=== PATIENT | female | born 1955 | race Caucasian/White ===

== ENCOUNTER 2016-12-02 12:31 | Inpatient (IN) | payer OTHER ==
[2016-12-02] VITALS (12 sets, daily range): BP systolic 121–182; BP diastolic 78–108; PULSE 80–91; RESP 16–30; TEMP 97.8; Ht 157.5 cm; Wt 112.0 kg
[~2016-12-02] VITALS: Ht 157.5 cm; Wt 112.0 kg
[2016-12-02] MEDS ORDERED: SOD CHLORIDE 0.9% 500 ML IV STA (12:35)
[2016-12-02] MEDS ORDERED: LORAZEPAM 2 MG INJ IV STA (12:35)
--- NOTE | 2016-12-02 14:00 | RADRPT ---
Addendum created at 12/02/2016 3:35:14 PM: These findings were discussed with [<Randolph Sarkar >] on 12/02/2016 at 3:32 PM who was aware of the finding. Addendum by: Melvin Doss PROCEDURE: Noncontrast CT Head. CLINICAL INDICATION: Seizure. TECHNIQUE: Noncontrast CT of the head was obtained. The administered radiation dose was CTDI vol = 43.38 mGy, DLP = 720.23 mGy-cm. One or more of the following dose reduction techniques were used: Au tomated exposure control, Adjustment of the mA and/or kV according to patient size, or Use of iterat yris reconstruction technique. COMPARISON: There are no similar studies submitted for comparison. FINDINGS: There is minimal generalized cerebral volume loss. There is minimal periventricular hypoattenuation suggesting chronic microvascular ischemic changes. There are mild vascular calcifications within the intracranial carotid arteries. There is no loss of carballo-white differentiation to suggest acute territorial infarction. There is an acute 3 mm in thickness posterior falcine subdural hemorrhage (image 22 series 2). There is no mass effect. No midline shift is identified. The patient is status post bilateral lens surgery. The paranasal sinuses are well aerated. No destructive osseous lesion is identified. IMPRESSION: 1. Acute 3 mm posterior falcine subdural hemorrhage. 2. Minimal generalized cerebral volume loss. 3. Minimal chronic microvascular ischemic changes. Consider MRI of the brain with and without contrast which is a more sensitive examination for evalua tion of seizures as clinically warranted. Further findings as detailed above. RPTAT: PP .Melvin Doss MD, Date Time Electronically viewed and signed by .Melvin Doss MD, MD on 12/02/2016 15:35 .F/
[2016-12-02 14:17] LABS: BASOPHIL # 0.1 10^3/ul (0.0-0.1); BASOPHILS % 0.7 % (0.0-2.0); EOSINOPHILS % 0.4 % (0.0-7.0); HEMATOCRIT 43.7 % (37.0-47.0); HEMOGLOBIN 14.2 g/dl (12.0-16.0); LYMPHOCYTES % 9.2 % (15.0-51.0); MEAN CORPUSCULAR HEMOGLOBIN 28.6 pg (29.0-33.0); MEAN CORPUSCULAR HGB CONC 32.5 g/dl (32.0-37.0); MEAN CORPUSCULAR VOLUME 88.1 fl (82.0-101.0); MEAN PLATELET VOLUME 11.7 fl (7.4-10.4); MONOCYTE # 0.5 10^3/ul (0.3-0.9); MONOCYTES % 4.5 % (0.0-11.0); NEUTROPHILS % 83.9 % (39.0-77.0); PLATELET COUNT 174 10^3/UL (140-415); RED BLOOD COUNT 4.96 10^6/ul (4.20-5.40); RED CELL DISTRIBUTION WIDTH 15.1 % (11.5-14.5); WHITE BLOOD COUNT 11.2 10^3/ul (4.8-10.8)
[2016-12-02 14:38] LABS: CALCIUM 8.9 mg/dl (8.4-10.2); CREATININE 0.74 mg/dl (0.44-1.00); POTASSIUM 4.1 mmol/L (3.5-5.1)
[2016-12-02] MEDS ORDERED: CLOP75TA27 PO (14:38)
[2016-12-02] MEDS ORDERED: ATOR20TA38 PO (14:38)
[2016-12-02] MEDS ORDERED: FURO20TA3 PO (14:38)
[2016-12-02] MEDS ORDERED: LAMO100T PO (14:39)
[2016-12-02] MEDS ORDERED: OMEP20CA16 PO (14:40)
--- NOTE | 2016-12-02 15:21 | ERA ---
ER Documentation Chief Complaint Date/Time DATE: 12/02/16 TIME: 15:15 Chief Complaint BROUGHT IN VIA EMS DUE TO SEIZURE FROM SNF HPI This is a 61-year-old female who presents the emergency room with a seizure. The patient presents from group home facility with a seizure. She has a known seizure and takes lamotrigine. The patient has reported compliance with medication regimen.The patient's last breakthrough seizure was in March, this history is provided by the patient's sister who has arrived later. The patient had a postictal state upon arrival. Accu-Chek in the field was normal. There is no report of fall or trauma.The patient was postictal upon arrival and unable to provide significant history. However throughout her ER course she had returned to baseline and was talking to the nurse asking for cigarette. ROS All systems reviewed and are negative except as per history of present illness. Medications Home Meds Reported Medications Omeprazole* (Omeprazole*) 20 Mg Capsule.dr, 20 MG PO DAILY, #30 CAP 12/02/16 Lamotrigine* (Lamotrigine*) 100 Mg Tablet, 100 MG PO BID, TAB 12/02/16 Furosemide* (Furosemide*) 20 Mg Tablet, 20 MG PO DAILY, #60 TAB 12/02/16 Clopidogrel Bisulfate (Clopidogrel) 75 Mg Tablet, 75 MG PO DAILY, #30 TAB 12/02/16 Atorvastatin Calcium* (Atorvastatin Calcium*) 20 Mg Tablet, 20 MG PO QHS, #30 TAB 12/02/16 Allergies Allergies: Coded Allergies: aspirin (Verified Allergy, Severe, 12/02/16) atenolol (Verified Allergy, Severe, 12/02/16) chlorthalidone (Verified Allergy, Severe, 12/02/16) lisinopril (Verified Allergy, Severe, 12/02/16) losartan (Verified Allergy, Severe, 12/02/16) PMhx/Soc Medical and Surgical Hx: Unable to obtain Hx Miscellaneous Medical Probl: Yes (SEIZURE) Hx Alcohol Use: Yes Hx Substance Use: No Hx Tobacco Use: Yes Smoking Status: Current every day smoker FmHx Family History: No diabetes Physical Exam Vitals Vital Signs Date Time Temp Pulse Resp B/P Pulse Ox O2 Delivery O2 Flow Rate FiO2 12/02/16 12:36 98.0 119 20 132/81 98 Physical Exam General: Protecting her airway, slightly postictal, following very simple commands Head: Normocephalic, atraumatic. Eyes: Pupils equally reactive, EOM intact ENT: Moist mucous membranes Neck: Supple, no lymphadenopathy Respiratory: Lungs clear bilaterally, no distress Cardiovascular: RRR, no murmurs, rubs, or gallops Abdominal: Soft, non-tender, non-distended, no peritoneal signs : Deferred MSK: No edema, no unilateral swelling, 5/5 strength Neurologic: Alert and oriented After appear to time of resolved postictal state , moving all extremities, normal speech, no focal weakness, no cerebellar signs Skin: No rash, No evidence of trauma to the occipital head or scalp Psych: Normal mood Result Diagram: 12/02/16 1405 12/02/16 1405 Results 24 hrs Laboratory Tests Test 12/02/16 14:05 White Blood Count 11.210^3/ul Red Blood Count 4.9610^6/ul Hemoglobin 14.2g/dl Hematocrit 43.7% Mean Corpuscular Volume 88.1fl Mean Corpuscular Hemoglobin 28.6pg Mean Corpuscular Hemoglobin Concent 32.5g/dl Red Cell Distribution Width 15.1% Platelet Count 48616^3/UL Mean Platelet Volume 11.7fl Neutrophils % 83.9% Lymphocytes % 9.2% Monocytes % 4.5% Eosinophils % 0.4% Basophils % 0.7% Nucleated Red Blood Cells % 0.0/100WBC Neutrophils # (Manual) 9.410^3/ul Lymphocytes # 1.010^3/ul Monocytes # 0.510^3/ul Eosinophils # 0.010^3/ul Basophils # 0.110^3/ul Nucleated Red Blood Cells # 0.010^3/ul Sodium Level 139mmol/L Potassium Level 4.1mmol/L Chloride Level 100mmol/L Carbon Dioxide Level 24mmol/L Anion Gap 19 Blood Urea Nitrogen 13mg/dl Creatinine 0.74mg/dl Glucose Level 104mg/dl Calcium Level 8.9mg/dl Current Medications Medications (Trade) Dose Ordered Sig/Alysha Route PRN Reason Start Time Stop Time Status Last Admin Dose Admin Sodium Chloride (NS) 500 ml @ 500 mls/hr Q1H STAT IV 12/02/16 12:35 12/02/16 13:34 DC 12/02/16 13:19 Lorazepam 0.5 mg 0.5 mg ONCE STAT IV 12/02/16 12:35 12/02/16 12:37 DC 12/02/16 13:18 Desmopressin Acetate 20 mcg/ Sodium Chloride 55 ml @ 110 mls/hr ONCE ONCE IVPB 12/02/16 16:00 12/02/16 16:29 UNV Sodium Chloride (NS) 250 ml @ 0 mls/hr Q0M ONCE IV 12/02/16 15:38 12/02/16 15:39 UNV Procedures/MDM EKG, MONITORS, & DIAGNOSTIC IMAGING: EKG: I reviewed and interpreted a 12-lead EKG. Rhythm: Normal sinus rhythm Ectopy: None Intervals: No abnormalities ST segments: No elevations or depressions T waves: No contiguous inversions CT brain: IMPRESSION: 1. Acute 3 mm posterior falcine subdural hemorrhage. 2. Minimal generalized cerebral volume loss. 3. Minimal chronic microvascular ischemic changes. Consider MRI of the brain with and without contrast which is a more sensitive examination for evaluation of seizures as clinically warranted. Further findings as detailed above. RPTAT: PP LAB INTERPRETATION: Normal electrolytes, coagulation profile pending MEDICAL DECISION MAKING: The patient presents with a seizure. She has a history of seizure and takes lamotrigine. The patient was postictal upon arrival prompting laboratory testing and CT imaging. Intervally, the patient has returned to her baseline and was asking the nurse for cigarettes. She did receive 0.5 mg of Ativan for seizure prophylaxis. The patient is sleeping and resting comfortably. However , the patient CT brain shows evidence of a small acute subdural hemorrhage. A phone call was not made by radiologist therefore there is a delay in consultation with the neurosurgeon. The patient is protecting her airway but still sleeping. Family member was informed. Coagulation profile added. The patient does take Plavix, I will discuss platelet transfusion with the neurosurgeon. ER COURSE: The patient continues to protect her airway. Given intracranial hemorrhage, ICU observation would be appropriate. No evidence of need for Further seizure prophylaxis at this time. Continue to monitor. Neurosurgery requested DDAVP and platelet transfusion given Plavix. The patient was now more awake and arousable. I discussed with the patient and/or family the risks, benefits, alternatives of blood transfusion. This includes allergic reaction and infections including HIV and hepatitis. The patient and/or family were able to verbalize these risks , stated understanding. A document has been signed and placed in the chart. I kept the patient and/or family informed of laboratory and diagnostic imaging results throughout the emergency room course. DISPOSITION PLAN: Intensive care unit CONSULTATION: Accepting care team and consultations: I discussed the current laboratory data, diagnostic imaging and emergency care provided. Admitting team: Dr SILVEIRA Admitting team indication: Insurance directed, [place] Consulting services: Dr. Ty, neurosurgery Critical Care Note: Total time: 43 minutes Indication/Organ System Threat: Intracranial hemorrhage I spent the above amount of critical care time with the patient, not including billable procedures. This included chart review, consultations, repeat bedside evaluations, and titration of appropriate medications to prevent cardiopulmonary or respiratory collapse. Departure Diagnosis: Primary Impression: Nontraumatic acute subdural hemorrhage Additional Impression: Seizure disorder Condition: MARLENE Dang MD Dec 02, 2016 15:21
[2016-12-02] MEDS ORDERED: SOD CHLORIDE 0.9% 250 ML IV ONE (15:38)
[2016-12-02] MEDS ORDERED: DESMOPRESSIN 20 MCG in SOD CHLORIDE 0.9% 50 ML IVPB ONE (16:00)
[2016-12-02] MEDS ORDERED: SOD CHLORIDE 0.9% 1,000 ML IV SCH (17:38)
[2016-12-02] MEDS ORDERED: ACETAMINOPHEN 325 MG TAB PO PRN ×2 (18:00)
[2016-12-02] MEDS ORDERED: BISACODYL 10 MG SUPP PR PRN (18:00)
[2016-12-02] MEDS ORDERED: DOCUSATE SODIUM 100 MG CAP PO PRN (18:00)
[2016-12-02] MEDS ORDERED: LORAZEPAM 2 MG INJ IV PRN (18:00)
[2016-12-02] MEDS ORDERED: morphine 2 MG INJ IV PRN (18:00)
[2016-12-02] MEDS ORDERED: ACETAMINOPHEN 650 MG SUPP PR PRN (18:00)
[2016-12-02] MEDS ORDERED: ONDANSETRON 4 MG INJ IV PRN (18:00)
[2016-12-02] MEDS ORDERED: MAGNESIUM HYDROXIDE 30ML CUP PO PRN (18:00)
[2016-12-02 18:48] LABS: INR 1.03; PROTIME 13.5 Sec (12.2-14.2); PT RATIO 1.1
--- NOTE | 2016-12-02 19:04 | RADRPT ---
PROCEDURE: CT Head without contrast. CLINICAL INDICATION: Subdural hematoma follow-up. Seizure. TECHNIQUE: The study was performed utilizing a GE 64-slice multidetector CT scanner. Direct spiral axial CT images of the brain were obtained from the vertex to the skull base without contrast. Gumaro nal and sagittal reformatted images are provided. The CTDI vol is 43.38 mGy and the DLP is 810.25 mG y-cm. The images were reviewed on a PACS workstation. COMPARISON: 12/02/2016 from 01:49 p.m. FINDINGS: Minimal diffuse atrophy is seen with a compensatory ventricular enlargement. Minimal white matter d isease in the periventricular and deep white matter is seen. Again seen is a tiny acute subdural hem atoma in the posterior falx measuring 3 mm in size and has not changed significantly. The carballo-whit e matter differentiation is maintained. No intra-axial fluid collection or mass effect or shift in the midline structures is seen. The visualized paranasal sinuses, mastoid air cells, orbits, and ca lvarium are unremarkable. Vascular calcifications are seen. IMPRESSION: 1. Stable tiny acute posterior falx subdural hematoma. 2. Minimal diffuse volume loss and minimal chronic microvascular ischemic changes again noted. RPTAT: HPNM Physician Chito Date Time Electronically viewed and signed by Physician Chito on 12/02/2016 19:04 /
[2016-12-02] MEDS ORDERED: NICOTINE (21 MG/24 HR) PATCH TRANSDERM ONE (20:00)
[2016-12-02] MEDS: NICOTINE (21 MG/24 HR) PATCH TRANSDERM SCH (20:30)
--- NOTE | 2016-12-02 20:37 | HP ---
Date/Time of Note Date/Time of Note DATE: 12/02/16 TIME: 20:20 Assessment/Plan VTE Prophylaxis VTE Prophylaxis Intervention: SCD's Assessment/Plan Assessment/Plan 61 yo female with: 1. Acute 3 mm posterior falcine subdural hemorrhage: Repeat CAT scan this evening with stable small posterior falx subdural hematoma Appreciate recommendations from neurosurgery, patient was given DDAVP, Plavix discontinued, platelet transfusion ordered. Repeat CAT scan stable. Admitting to intensive care unit for close monitoring. Neurosurgery evaluation pending. Blood pressure control CT angiogram head and neck ordered, MRI brain pending. 2. Seizure disorder: Continue Lamictal, if additional seizure medication needed , will have EEG and neurology consult and possibly start Keppra. Ativan as needed for seizures. 3. Hypertension: Continue home medications, hydralazine as needed, nicardipine drip as needed 4. Hyperlipidemia: Fasting lipid panel in a.m., continue statin therapy. 5. Congestive heart failure: Monitor volume status, holding of Lasix. 2D echocardiogram to evaluate ejection fraction. 6. Tobacco use: Patient refusing to quit, nicotine patch while inpatient. Prophylaxis: SCDs for DVT prophylaxis, Pepcid for GI prophylaxis Disposition: Admit to ICU for close neurological monitoring, neurosurgery evaluation, additional brain imaging in a.m., additional neurological evaluation if needed for seizure disorder if uncontrolled. 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 By the time the patient got to the emergency department she was postictal and had recovered. As part of her workup she had a CAT scan of the brain that showed small area of subdural hemorrhage. Patient was given DDAVP and platelets since she is on Plavix, repeat CAT scan 6 hours later shows stable small subdural hematoma. She is already on Lamictal, Ativan has been ordered as needed for seizures. She will be evaluated by Dr. Ty from Neurosurgery. She is alert oriented 3 at least currently, per family member at baseline the patient's mental status is close to baseline. She is still current smoker and is insisting on going in smoking unaware of the fact that she is currently on seizure precaution. According to family member, at baseline patient is noted to have a lot of impulsivity and also occasionally forgetful. She likely has signs of dementia possibly vascular dementia. She seems impulsive. She is being admitted to intensive care unit for close neurological monitoring. Additional brain imaging to be obtained in a.m. ROS Constitutional: improved Eyes: no complaints ENT: no complaints Respiratory: no complaints Cardiovascular: no complaints Gastrointestinal: no complaints Genitourinary: no complaints Musculoskeletal: no complaints Skin: no complaints Neurologic: seizure Endocrine: no complaints Psychological: other (Impulsive, likely early dementia) PMH/Family/Social Past Medical History Previous CVA 2, March 2015 and March 2016 in [place], according to the family member likely ischemic CVA asked the patient was placed on Plavix Hypertension Hyperlipidemia Seizure disorder Congestive heart failure per family member, Medical History: high cholesterol, hypertension Past Surgical History Past Surgical Hx: no surgical history Family History Significant Family History: no pertinent family hx Social History Alcohol Use: none Smoking Status: Current every day smoker (Up to 1 pack a day) Drug Use: none Exam/Review of Systems Vital Signs Vitals Vital Signs Date Time Temp Pulse Resp B/P Pulse Ox O2 Delivery O2 Flow Rate FiO2 12/02/16 19:16 97.8 84 20 129/75 98 Room Air Exam Constitutional: alert, oriented (x3), other (Little agitated as she wants to go out and smoke) Psych: anxiety, confusion Respiratory: clear to auscultation, normal air movement Cardiovascular: nl pulses, regular rate and rhythm Gastrointestinal: non-tender, soft Extremities: normal pulses, other (No edema, clubbing or cyanosis) Neurological: SATELLITE D[employer] 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 II-XII intact, lethargic (slightly), nl speech, other (Very impulsive) Labs Result Diagram: 12/02/16 1405 12/02/16 1405 Medications Medications Current Medications Sodium Chloride (NS) 1,000 ml @ 80 mls/hr [id number] IV ; Start 12/02/16 at 17:38 Ondansetron HCl (Zofran Inj) 4 mg Q6H PRN IV NAUSEA AND/OR VOMITING; Start at 18:00 Acetaminophen (Tylenol Tab) 650 mg Q6H PRN PO PAIN; Start 12/02/16 at 18:00 Acetaminophen (Tylenol Supp) 650 mg Q4H PRN WA PAIN LEVEL 1-3 OR FEVER; Start 12/02/16 at 18:00 Morphine Sulfate (morphine) 2 mg Q4H PRN IV PAIN LEVEL 7-10; Start 12/02/16 at 18:00 Docusate Sodium (Colace) 100 mg Q12H PRN PO CONSTIPATION; Start 12/02/16 at 18: 00 Magnesium Hydroxide (Milk Of Mag) 30 ml DAILY PRN PO CONSTIPATION; Start at 18:00 Bisacodyl (Dulcolax Supp) 10 mg DAILY PRN [place] CONSTIPATION; Start 12/02/16 at 18 :00 Famotidine (Pepcid) 20 mg Q12 PO ; Start 12/02/16 at 21:00 Eye Lubricant (Artificial Tears Oph) 1 drop TID BOTH EYES ; Start 12/02/16 at 21 :00 Acetaminophen (Tylenol Tab) 650 mg Q4H PRN PO TEMP GREATER THAN 99.6F; Start at 18:00 Docusate Sodium (Colace) 100 mg BID PO ; Start 12/02/16 at 21:00 Atorvastatin Calcium (Lipitor) 20 mg QHS PO ; Start 12/02/16 at 21:00 Lamotrigine (Lamictal) 100 mg BID PO ; Start 12/02/16 at 21:00 Pantoprazole (Protonix Tab) 40 mg DAILY@06 PO ; Start 12/03/16 at 06:00 Lorazepam (Ativan) 1 mg Q6H PRN IV SEIZURES Last administered on 12/02/16t 20: 04; Admin Dose 1 MG; Start 12/02/16 at 18:00 Procedures Procedures Addendum created at 12/02/2016 3:35:14 PM: These findings were discussed with [<Randolph Sarkar >] on 12/02/2016 at 3:32 PM who was aware of the finding. Addendum by: Melvin Doss PROCEDURE: Noncontrast CT Head. CLINICAL INDICATION: Seizure. TECHNIQUE: Noncontrast CT of the head was obtained. The administered radiation dose was CTDI vol = 43.38 mGy, DLP = 720.23 mGy-cm. One or more of the following dose reduction techniques were used: Automated exposure control, Adjustment of the mA and/or kV according to patient size, or Use of iterative reconstruction technique. COMPARISON: There are no similar studies submitted for comparison. FINDINGS: There is minimal generalized cerebral volume loss. There is minimal periventricular hypoattenuation suggesting chronic microvascular ischemic changes. There are mild vascular calcifications within the intracranial carotid arteries. There is no loss of carballo-white differentiation to suggest acute territorial infarction. There is an acute 3 mm in thickness posterior falcine subdural hemorrhage ( image 22 series 2). There is no mass effect. No midline shift is identified. The patient is status post bilateral lens surgery. The paranasal sinuses are well aerated. No destructive osseous lesion is identified. IMPRESSION: 1. Acute 3 mm posterior falcine subdural hemorrhage. 2. Minimal generalized cerebral volume loss. 3. Minimal chronic microvascular ischemic changes. Consider MRI of the brain with and without contrast which is a more sensitive examination for evaluation of seizures as clinically warranted. Further findings as detailed above. RPTAT: PP .Melvin Doss MD, MD Date Time Electronically viewed and signed by .Melvin Doss MD, MD on 12/02/2016 15:35 PROCEDURE: CT Head without contrast. CLINICAL INDICATION: Subdural hematoma follow-up. Seizure. TECHNIQUE: The study was performed utilizing a GE 64-slice multidetector CT scanner. Direct spiral axial CT images of the brain were obtained from the vertex to the skull base without contrast. Coronal and sagittal reformatted images are provided. The CTDI vol is 43.38 mGy and the DLP is 810.25 mGy-cm. The images were reviewed on a PACS workstation. COMPARISON: 12/02/2016 from 01:49 p.m. FINDINGS: Minimal diffuse atrophy is seen with a compensatory ventricular enlargement. Minimal white matter disease in the periventricular and deep white matter is seen. Again seen is a tiny acute subdural hematoma in the posterior falx measuring 3 mm in size and has not changed significantly. The carballo-white matter differentiation is maintained. No intra-axial fluid collection or mass effect or shift in the midline structures is seen. The visualized paranasal sinuses, mastoid air cells, orbits, and calvarium are unremarkable. Vascular calcifications are seen. IMPRESSION: 1. Stable tiny acute posterior falx subdural hematoma. 2. Minimal diffuse volume loss and minimal chronic microvascular ischemic changes again noted. RPTAT: HPNM Physician Chito Date Time Electronically viewed and signed by Yoshi Bolaños Physician on 12/02/2016 19 :04 / DOMINICK SILVEIRA Dec 02, 2016 20:31
[2016-12-02] MEDS: DOCUSATE SODIUM 100 MG CAP PO SCH (21:00)
[2016-12-02] MEDS: ATORVASTATIN 20 MG TAB PO SCH (21:00)
[2016-12-02] MEDS: LAMOTRIGINE 100 MG TAB PO SCH (21:00)
[2016-12-02] MEDS: FAMOTIDINE 20 MG TAB PO SCH (21:00)
[2016-12-02] MEDS: niCARdipine 25 MG in SOD CHLORIDE 0.9% 240 ML IV SCH (21:40)
[2016-12-02] MEDS: ARTIFICIAL TEARS 15 ML OPH BOTH EYES SCH (22:09)
[2016-12-02] MEDS: LORAZEPAM 2 MG INJ IV PRN (22:46)
[2016-12-02] MEDS: DEXTROSE 5%-0.45% NACL 1,000 ML IV SCH (23:00)
[2016-12-03] VITALS (47 sets, daily range): BP systolic 95–160; BP diastolic 26–118; PULSE 75–91; RESP 16–27
[2016-12-03] MEDS ORDERED: SOD CHLORIDE 0.9% 100 ML ONE (01:16)
[2016-12-03] MEDS ORDERED: IOHEXOL 300MG/ML 150 ML BTL ONE (01:16)
[2016-12-03] MEDS: niCARdipine 25 MG in SOD CHLORIDE 0.9% 240 ML IV SCH (01:55)
[2016-12-03] MEDS: LORAZEPAM 2 MG INJ IV PRN (02:03)
--- NOTE | 2016-12-03 02:54 | RADRPT ---
PROCEDURE: CTA Head and neck. CLINICAL INDICATION: Intracranial hemorrhage TECHNIQUE: CTA of the head and neck was obtained . Sagittal and coronal reformations and MIPs were provided. The administered radiation dose was CTDI vol = 17.1 mGy, DLP = 644 mGy-cm. Images were ob tained prior following the intravenous contrast administration of 100 cc of Omnipaque 300 contrast. Coronal and sagittal as well as maximal intensity projection reformations were obtained. COMPARISON: 12/02/2016 FINDINGS: CTA head: Carotid arteries: Some mild atherosclerotic calcifications are noted within the cavernous and suprac linoid carotid arteries without significant narrowing. Anterior cerebral arteries: Unremarkable. Middle cerebral arteries: Unremarkable. Posterior cerebral arteries: Unremarkable. Anterior communicating artery: Present. Posterior communicating arteries: Patent on the left. Not definitely seen on the right. Basilar artery: Unremarkable. No aneurysm is identified.The venous sinuses are patent. CTA neck: Aorta:Within normal limits. Right carotid artery Common carotid artery: Unremarkable. Internal carotid artery: Some atherosclerotic calcifications are noted in the carotid bulb. No sign ificant stenosis by NASCET criteria. External carotid artery: Unremarkable. Left carotid artery Common carotid artery: There is some noncalcified plaque within the left distal common carotid arter y with approximately 30% narrowing by NASCET criteria. Internal carotid artery: Some atherosclerotic calcifications are noted in the carotid bulb. No sign ificant stenosis by NASCET criteria. External carotid artery: Unremarkable. Vertebral arteries: Unremarkable. Vertebral artery dominance: Right CT neck with contrast: Small nodules are noted within the right thyroid lobe. There is no cervical adenopathy. IMPRESSION: No internal carotid artery stenosis by NASCET criteria. Mild narrowing of the left common carotid artery. No intracranial aneurysm or stenosis. RPTAT: HJAH .Francisco Javier Desir MD, Date Time Electronically viewed and signed by .Francisco Javier Desir MD, on 12/03/2016 02:53 .T/
[2016-12-03] MEDS: PANTOPRAZOLE (EC) 40 MG TAB PO SCH (06:00)
[2016-12-03 07:17] LABS: BASOPHIL # 0.1 10^3/ul (0.0-0.1); BASOPHILS % 0.7 % (0.0-2.0); EOSINOPHILS # 0.4 10^3/ul (0.0-0.5); EOSINOPHILS % 3.5 % (0.0-7.0); HEMATOCRIT 40.4 % (37.0-47.0); HEMOGLOBIN 13.2 g/dl (12.0-16.0); LYMPHOCYTES # 2.4 10^3/ul (0.8-2.9); MEAN CORPUSCULAR HEMOGLOBIN 28.6 pg (29.0-33.0); MEAN CORPUSCULAR HGB CONC 32.7 g/dl (32.0-37.0); MEAN CORPUSCULAR VOLUME 87.4 fl (82.0-101.0); MEAN PLATELET VOLUME 11.6 fl (7.4-10.4); MONOCYTE # 0.9 10^3/ul (0.3-0.9); MONOCYTES % 7.8 % (0.0-11.0); NEUTROPHILS % 65.3 % (39.0-77.0); PLATELET COUNT 178 10^3/UL (140-415); RED BLOOD COUNT 4.62 10^6/ul (4.20-5.40); RED CELL DISTRIBUTION WIDTH 15.5 % (11.5-14.5)
[2016-12-03 07:29] LABS: INR 0.97; PARTIAL THROMBOPLASTIN TIME 22.8 Sec (25.0-35.0); PROTIME 12.9 Sec (12.2-14.2)
[2016-12-03 07:31] LABS: MAGNESIUM 2.2 mg/dl (1.7-2.5); PHOSPHORUS 2.9 mg/dl (2.5-4.9)
[2016-12-03 07:32] LABS: ALBUMIN/GLOBULIN RATIO 1.14; BILIRUBIN,INDIRECT 0.8 mg/dl (0-1.1); BILIRUBIN,TOTAL 0.8 mg/dl (0.2-1.3); CALCIUM 8.7 mg/dl (8.4-10.2); CREATININE 0.57 mg/dl (0.44-1.00); POTASSIUM 3.2 mmol/L (3.5-5.1); TOTAL PROTEIN 7.5 g/dl (6.1-8.1)
[2016-12-03 07:51] LABS: CHOL/HDL RATIO 2.5 RATIO
[2016-12-03] MEDS: DOCUSATE SODIUM 100 MG CAP PO SCH ×2 (09:00→20:06)
[2016-12-03] MEDS ORDERED: POTASSIUM CHLORIDE (SR) 20 MEQ TAB PO STA (09:36)
--- NOTE | 2016-12-03 09:49 | PN ---
Date/Time of Note Date/Time of Note DATE: 12/03/16 TIME: 09:43 Assessment/Plan VTE Prophylaxis VTE Prophylaxis Intervention: SCD's Lines/Catheters IV Catheter Type (from Nrs): Peripheral IV Urinary Cath still in place: Yes Reason Cath still needed: other (indicate) (Monitor urine output, bed bound for now) Assessment/Plan Assessment/Plan 61 yo female with: 1. Acute 3 mm posterior falcine subdural hemorrhage: Repeat CAT scan last night with stable small posterior falx subdural hematoma CT angiogram head and neck done overnight, CT angiogram neck negative for stenosis, CT angiogram head results pending. MRI brain pending. Appreciate recommendations from neurosurgery, patient was given DDAVP, Plavix discontinued, platelet transfusion ordered. Repeat CAT scan stable. Follow-up recommendations this morning. Blood pressure control, currently on Cardene drip while n.p.o. awaiting speech evaluation One-to-one sitter 2. Seizure disorder: Continue Lamictal, if additional seizure medication needed , will have EEG and neurology consult and possibly start Keppra. Ativan as needed for seizures. 3. Hypertension: Currently n.p.o., nicardipine drip has been started overnight for blood pressure control. Hydralazine as needed. 4. Hyperlipidemia: Fasting lipid panel in a.m., continue statin therapy. 5. Congestive heart failure: Monitor volume status, holding of Lasix. 2D echocardiogram to evaluate ejection fraction pending. 6. Tobacco use: Patient refusing to quit, nicotine patch while inpatient. Prophylaxis: SCDs for DVT prophylaxis, Pepcid for GI prophylaxis Disposition: ICU for close neurological monitoring while on nicardipine drip, neurosurgery evaluation pending, CTA brain results pending, MRI brain pending. 1 :1 sitter. Subjective 24 Hr Interval Summary Free Text/Dictation Patient still impulsive, disoriented at times, hemodynamically stable, had to be started on nicardipine drip for blood pressure control. She is currently n.p.o. awaiting speech evaluation. Sitter at bedside. Follow-up neurosurgical evaluation and the recommendation. MRI brain still pending, CT angiogram head and neck done results pending. No seizure activity reported. Exam/Review of Systems Vital Signs Vitals Vital Signs Date Time Temp Pulse Resp B/P Pulse Ox O2 Delivery O2 Flow Rate FiO2 12/03/16 06:30 78 27 107/26 97 8/31/17 06:00 Nasal Cannula 2.0 12/03/16 04:00 97.8 Intake and Output 12/02/16 12/02/16 12/03/16 15:00 23:00 07:00 Intake Total 275 ml 680 ml Output Total 275 ml 1125 ml Balance 0 ml -445 ml Exam Constitutional: alert, oriented (x2) Head: normocephalic Respiratory: clear to auscultation, normal air movement Cardiovascular: nl pulses, regular rate and rhythm Gastrointestinal: non-tender, soft Musculoskeletal: nl extremities to inspection Extremities: normal pulses, other (No edema, clubbing or cyanosis) 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, confused (Oriented x2), lethargic, nl speech, other (Moving all 4 extremities) Results Result Diagram: 12/03/1620 12/03/16 0620 Results 24 hrs Laboratory Tests Test 12/02/16 14:05 12/03/16 06:20 White Blood Count 11.2 H 11.0 H Red Blood Count 4.96 4.62 Hemoglobin 14.2 13.2 Hematocrit 43.7 40.4 Mean Corpuscular Volume 88.1 87.4 Mean Corpuscular Hemoglobin 28.6 L 28.6 L Mean Corpuscular Hemoglobin Concent 32.5 32.7 Red Cell Distribution Width 15.1 H 15.5 H Platelet Count 174 178 Mean Platelet Volume 11.7 H 11.6 H Neutrophils % 83.9 H 65.3 Lymphocytes % 9.2 L 22.0 Monocytes % 4.5 7.8 Eosinophils % 0.4 3.5 Basophils % 0.7 0.7 Nucleated Red Blood Cells % 0.0 0.0 Neutrophils # (Manual) 9.4 H 7.2 Lymphocytes # 1.0 2.4 Monocytes # 0.5 0.9 Eosinophils # 0.0 0.4 Basophils # 0.1 0.1 Nucleated Red Blood Cells # 0.0 0.0 Prothrombin Time 13.5 12.9 Prothrombin Time Ratio 1.1 1.0 INR International Normalized Ratio 1.03 0.97 Activated Partial Thromboplast Time 30.0 22.8 L Sodium Level 139 140 Potassium Level 4.1 3.2 L Chloride Level 100 100 Carbon Dioxide Level 24 28 Anion Gap 19 H 15 Blood Urea Nitrogen 13 10 Creatinine 0.74 0.57 Glucose Level 104 94 Calcium Level 8.9 8.7 Phosphorus Level 2.9 Magnesium Level 2.2 Total Bilirubin 0.8 Direct Bilirubin 0.00 Indirect Bilirubin 0.8 Aspartate Amino Transf (AST/SGOT) 22 Alanine Aminotransferase (ALT/SGPT) 29 Alkaline Phosphatase 115 Total Protein 7.5 Albumin 4.0 Globulin 3.50 H Albumin/Globulin Ratio 1.14 Triglycerides Level 109 Cholesterol Level 166 LDL Cholesterol, Calculated 79 HDL Cholesterol 65 Cholesterol/HDL Ratio 2.5 Medications Medications Current Medications Ondansetron HCl (Zofran Inj) 4 mg Q6H PRN IV NAUSEA AND/OR VOMITING; Start at 18:00 Acetaminophen (Tylenol Tab) 650 mg Q6H PRN PO PAIN; Start 12/02/16 at 18:00 Acetaminophen (Tylenol Supp) 650 mg Q4H PRN [place] PAIN LEVEL 1-3 OR FEVER; Start 12/02/16 at 18:00 Morphine Sulfate (morphine) 2 mg Q4H PRN IV PAIN LEVEL 7-10; Start 12/02/16 at 18:00 Docusate Sodium (Colace) 100 mg Q12H PRN PO CONSTIPATION; Start 12/02/16 at 18: 00 Magnesium Hydroxide (Milk Of Mag) 30 ml DAILY PRN PO CONSTIPATION; Start at 18:00 Bisacodyl (Dulcolax Supp) 10 mg DAILY PRN OR CONSTIPATION; Start 12/02/16 at 18 :00 Famotidine (Pepcid) 20 mg Q12 PO ; Start 12/02/16 at 21:00 Eye Lubricant (Artificial Tears Oph) 1 drop TID BOTH EYES Last administered on 12/02/16t 22:09; Admin Dose 1 DROP; Start 12/02/16 at 21:00 Acetaminophen (Tylenol Tab) 650 mg Q4H PRN PO TEMP GREATER THAN 99.6F; Start at 18:00 Docusate Sodium (Colace) 100 mg BID PO ; Start 12/02/16 at 21:00 Atorvastatin Calcium (Lipitor) 20 mg QHS PO ; Start 12/02/16 at 21:00 Lamotrigine (Lamictal) 100 mg BID PO ; Start 12/02/16 at 21:00 Pantoprazole (Protonix Tab) 40 mg DAILY@06 PO ; Start 12/03/16 at 06:00 Nicotine (Nicoderm 21 Mg/ 24hr) 1 patch DAILY TRANSDERM ; Start 12/02/16 at 20: 30 Hydralazine HCl (Apresoline) 10 mg Q6 PRN IV ELEVATED BLOOD PRESSURE; Start at 20:30 Lorazepam 1 mg 1 mg Q2 PRN IV SEIZURES Last administered on 12/03/16 02:03; Admin Dose 1 MG; Start 12/02/16 at 23:00 Dextrose/Sodium Chloride (D5-1/2ns) 1,000 ml @ 50 mls/hr Q20H IV Last administered on 12/02/16 23:00; Admin Dose 50 MLS/HR; Start 12/02/16 at 23:00 DOMINICK SILVEIRA Dec 03, 2016 09:49
[2016-12-03] MEDS: ARTIFICIAL TEARS 15 ML OPH BOTH EYES SCH ×3 (11:54→20:05)
[2016-12-03] MEDS: LAMOTRIGINE 100 MG TAB PO SCH ×2 (14:26→20:18)
[2016-12-03] MEDS: FAMOTIDINE 20 MG TAB PO SCH ×2 (14:27→20:18)
[2016-12-03] MEDS: NICOTINE (21 MG/24 HR) PATCH TRANSDERM SCH (14:43)
--- NOTE | 2016-12-03 16:32 | CONS ---
Date/Time of Note Date/Time of Note DATE: 12/03/16 TIME: 16:19 Assessment/Plan Assessment/Plan Problems: (1) Nontraumatic acute subdural hemorrhage Status: Acute Additional Assessment/Plan traumatic SDH, unchanged on repeat CT. etiology of sz d/o unclear. I spoke to patient's sister. There appears to also be significant psych history (hears voices, hallucinations), though no official diagnosis has been made. The patient has MRI pending to rule out structural etiology of sz. At the present time there is no indication for neurosurgical intervention. Consultation Date/Type/Reason Admit Date/Time Dec 02, 2016 at 17:48 Date of Consultation: Dec 03, 2016 Type of Consultation: neurosurgery Reason for Consultation SDH Hx of Present Illness 61 year old female with new onset seizure disorder 2014 in [place], controlled on single agent. She had seizure at assisted living and brought to ED; CT shows small ~3mm posterior falcine hematoma, stable on repeat CT. Eyes: no complaints ENT: no complaints Respiratory: no complaints Cardiovascular: no complaints Gastrointestinal: no complaints Genitourinary: no complaints Musculoskeletal: no complaints Skin: no complaints Neurologic: seizure Psychological: anxiety, confusion Past Medical History Medical History: high cholesterol, hypertension Past Surgical History Past Surgical Hx: no surgical history Social History Alcohol Use: none Smoking Status: Current every day smoker Drug Use: none Exam/Review of Systems Vital Signs Vitals Vital Signs Date Time Temp Pulse Resp B/P Pulse Ox O2 Delivery O2 Flow Rate FiO2 12/03/16 12:00 76 12/03/16 06:30 27 107/26 97 12/03/16 06:00 Nasal Cannula 2.0 12/03/16 04:00 97.8 Intake and Output 12/02/16 12/02/16 12/03/16 14:59 22:59 06:59 Intake Total 145 ml 810 ml Output Total 150 ml 1250 ml Balance -5 ml -440 ml Exam On exam awake alert speech fluent appropriate moving all extremities 5/5 no drift. Pupils= , face = , eomi, tml. Sleepy. Results Result Diagram: 12/03/16 0620 12/03/16 0620 Results 24 hrs Laboratory Tests Test 12/03/16 06:20 White Blood Count 11.0 H Red Blood Count 4.62 Hemoglobin 13.2 Hematocrit 40.4 Mean Corpuscular Volume 87.4 Mean Corpuscular Hemoglobin 28.6 L Mean Corpuscular Hemoglobin Concent 32.7 Red Cell Distribution Width 15.5 H Platelet Count 178 Mean Platelet Volume 11.6 H Neutrophils % 65.3 Lymphocytes % 22.0 Monocytes % 7.8 Eosinophils % 3.5 Basophils % 0.7 Nucleated Red Blood Cells % 0.0 Neutrophils # (Manual) 7.2 Lymphocytes # 2.4 Monocytes # 0.9 Eosinophils # 0.4 Basophils # 0.1 Nucleated Red Blood Cells # 0.0 Prothrombin Time 12.9 Prothrombin Time Ratio 1.0 INR International Normalized Ratio 0.97 Activated Partial Thromboplast Time 22.8 L Sodium Level 140 Potassium Level 3.2 L Chloride Level 100 Carbon Dioxide Level 28 Anion Gap 15 Blood Urea Nitrogen 10 Creatinine 0.57 Glucose Level 94 Calcium Level 8.7 Phosphorus Level 2.9 Magnesium Level 2.2 Total Bilirubin 0.8 Direct Bilirubin 0.00 Indirect Bilirubin 0.8 Aspartate Amino Transf (AST/SGOT) 22 Alanine Aminotransferase (ALT/SGPT) 29 Alkaline Phosphatase 115 Total Protein 7.5 Albumin 4.0 Globulin 3.50 H Albumin/Globulin Ratio 1.14 Triglycerides Level 109 Cholesterol Level 166 LDL Cholesterol, Calculated 79 HDL Cholesterol 65 Cholesterol/HDL Ratio 2.5 Medications Medications Current Medications Ondansetron HCl (Zofran Inj) 4 mg Q6H PRN IV NAUSEA AND/OR VOMITING; Start at 18:00 Acetaminophen (Tylenol Tab) 650 mg Q6H PRN PO PAIN; Start 12/02/16 at 18:00 Acetaminophen (Tylenol Supp) 650 mg Q4H PRN [place] PAIN LEVEL 1-3 OR FEVER; Start 12/02/16 at 18:00 Morphine Sulfate (morphine) 2 mg Q4H PRN IV PAIN LEVEL 7-10; Start 12/02/16 at 18:00 Docusate Sodium (Colace) 100 mg Q12H PRN PO CONSTIPATION; Start 12/02/16 at 18: 00 Magnesium Hydroxide (Milk Of Mag) 30 ml DAILY PRN PO CONSTIPATION; Start at 18:00 Bisacodyl (Dulcolax Supp) 10 mg DAILY PRN [place] CONSTIPATION; Start 12/02/16 at 18 :00 Famotidine (Pepcid) 20 mg Q12 PO Last administered on 12/03/16t 14:27; Admin Dose 20 MG; Start 12/02/16 at 21:00 Eye Lubricant (Artificial Tears Oph) 1 drop TID BOTH EYES Last administered on 12/03/16 11:54; Admin Dose 1 DROP; Start 12/02/16 at 21:00 Acetaminophen (Tylenol Tab) 650 mg Q4H PRN PO TEMP GREATER THAN 99.6F; Start at 18:00 Docusate Sodium (Colace) 100 mg BID PO ; Start 12/02/16 at 21:00 Atorvastatin Calcium (Lipitor) 20 mg QHS PO ; Start 12/02/16 at 21:00 Lamotrigine (Lamictal) 100 mg BID PO Last administered on 12/03/16 14:26; Admin Dose 100 MG; Start 12/02/16 at 21:00 Pantoprazole (Protonix Tab) 40 mg DAILY@06 PO ; Start 12/03/16 at 06:00 Nicotine (Nicoderm 21 Mg/ 24hr) 1 patch DAILY TRANSDERM Last administered on 14:43; Admin Dose 1 PATCH; Start 12/02/16 at 20:30 Hydralazine HCl (Apresoline) 10 mg Q6 PRN IV ELEVATED BLOOD PRESSURE; Start at 20:30 Lorazepam 1 mg 1 mg Q2 PRN IV SEIZURES Last administered on 12/03/16 02:03; Admin Dose 1 MG; Start 12/02/16 at 23:00 Dextrose/Sodium Chloride (D5-1/2ns) 1,000 ml @ 50 mls/hr Q20H IV Last administered on 12/02/16 23:00; Admin Dose 50 MLS/HR; Start 12/02/16 at 23:00 WANDER STATON MD Dec 03, 2016 16:32
--- NOTE | 2016-12-03 17:01 | RADRPT ---
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 Physician: JEREMY SILVEIRA Quality: Adequate Procedures: Transthoracic echocardiogram with complete 2D, M-Mode, and doppler examination. Indications: Evaluate Left Ventricular function. 2D/M Mode Doppler Measurement Value Normal Ranges Measurement Value Normal Ranges LVIDd 2D 5.1 3.5 - 5.6 cm AV Peak Ever 1.7 m/sec LVIDs 2D 3.3 2.1 - 4.1 cm AV Peak PG 12.2 mmHg LVPWd 2D 1.3 0.6 - 1.1 cm LVOT Peak Ever 1.0 m/sec IVSd 2D 1.3 0.6 - 1.1 cm LVOT Peak PG 3.8 mmHg AoR Diam 2D 2.8 2.0 - 3.7 cm MV E Peak Ever 0.8 m/sec EDV 2D 124.8 cm3 MV A Peak Ever 1.1 m/sec ESV 2D 35.7 cm3 MV E/A 0.8 LA Dimen 2D 3.6 2.3 - 4.0 cm MV Decel Time 194 msec MV Decel [place] 4 MV E/A 0.8 Findings Left Ventricle: Normal left ventricular systolic function. Normal left ventricular cavity size. Mild concentric left ventricular hypertrophy. Ejection fraction is visually estimated at 65 %. Tissue Doppler/Mitral Doppler indices are consistent with impaired relaxation (Stage I diastolic dysfunction). Right Ventricle: Normal right ventricular size. Normal right ventricular systolic function. Left Atrium: The left atrium is normal in size. Right Atrium: The right atrium is normal in size. Mitral Valve: Mild mitral leaflet calcification. Mild mitral annular calcification. Trace mitral regurgitation. Aortic Valve: Normal appearance of the aortic valve. No significant aortic stenosis or insufficiency. Tricuspid Valve: Normal appearance and function of the tricuspid valve with trace physiologic regurgitation. Pulmonic Valve: Pulmonic valve not well visualized. There is trace pulmonic regurgitation. Pericardium: Normal pericardium with no significant pericardial effusion. Aorta: Normal aortic root. IVC: Normal size and normal respiratory collapse consistent with normal right atrial pressure. Conclusions 1.Normal left ventricular systolic function. Normal left ventricular cavity size. Mild concentric left ventricular hypertrophy. Ejection fraction is visually estimated at 65 %. Tissue Doppler/Mitral Doppler indices are consistent with impaired relaxation (Stage I diastolic dysfunction). 2.Normal right ventricular size. Normal right ventricular systolic function. 3.The left atrium is normal in size. 4.The right atrium is normal in size. 5.No significant valvular stenosis or regurgitation seen. 6.Normal pericardium with no significant pericardial effusion. Electronically Signed By: Kareem Mondragon 03-Dec-2016 17:01:02 -0700 Patient Name: NELI PHAM Study Date: 03-Dec-2016 [id number]
[2016-12-03] MEDS: ATORVASTATIN 20 MG TAB PO SCH (20:18)
[2016-12-03] MEDS: DEXTROSE 5%-0.45% NACL 1,000 ML IV SCH (22:00)
[2016-12-04] VITALS (34 sets, daily range): BP systolic 126–182; BP diastolic 65–98; PULSE 68–110; RESP 15–26
[2016-12-04] MEDS: PANTOPRAZOLE (EC) 40 MG TAB PO SCH (05:53)
--- NOTE | 2016-12-04 06:14 | RADRPT ---
PROCEDURE: MR Brain with and without contrast. 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 Additionally, post contrast coronal 3-D FSPGR, axial, sagittal and lilia nal T1-weighted sequences were acquired after the uneventful intravenous administration of 10 cc of Magnevist. COMPARISON: CT of the brain 12/02/2016 FINDINGS: No diffusion weighted abnormalities are seen to suggest the presence of acute ischemia or recent in farct. No hypointense signal abnormalities are seen on the GRE images to suggest the presence of bl ood degradation products. Mild frontal atrophy is evident. Scattered T2-weighted/FLAIR hyperintensi ties are seen in the periventricular and subcortical white matter, consistent with moderate microva scular ischemic disease. The signal intensity is normal the brainstem and cerebellum. No hypointens e signal abnormalities are seen on the GRE images to suggest the presence of blood degradation produ cts. The medial temporal lobes are bilaterally symmetric and normal in appearance. The sellar, parasellar regions are normal. Normal flow voids are visible in the proximal intracranial arteries and dural sinuses, indicating patency. The postcontrast images show no abnormal parenchymal, leptom eningeal, or dural enhancement. The craniocervical junction is normal. There is a retention cyst in the right maxillary sinus. IMPRESSION: 1. No evidence of acute ischemia. 2. Moderate microvascular ischemic disease. 3. No evidence of mesial temporal sclerosis. Physician Ann-Marie Date Time Electronically viewed and signed by Physician Ann-Marie on 12/04/2016 06:13 /
[2016-12-04 07:49] LABS: BASOPHIL # 0.1 10^3/ul (0.0-0.1); BASOPHILS % 0.8 % (0.0-2.0); EOSINOPHILS # 0.3 10^3/ul (0.0-0.5); EOSINOPHILS % 3.5 % (0.0-7.0); HEMOGLOBIN 13.6 g/dl (12.0-16.0); LYMPHOCYTES # 1.7 10^3/ul (0.8-2.9); LYMPHOCYTES % 18.2 % (15.0-51.0); MEAN CORPUSCULAR HEMOGLOBIN 28.6 pg (29.0-33.0); MEAN CORPUSCULAR HGB CONC 33.2 g/dl (32.0-37.0); MEAN CORPUSCULAR VOLUME 86.3 fl (82.0-101.0); MEAN PLATELET VOLUME 11.1 fl (7.4-10.4); MONOCYTE # 0.8 10^3/ul (0.3-0.9); MONOCYTES % 7.9 % (0.0-11.0); NEUTROPHILS % 69.1 % (39.0-77.0); PLATELET COUNT 198 10^3/UL (140-415); RED BLOOD COUNT 4.75 10^6/ul (4.20-5.40); RED CELL DISTRIBUTION WIDTH 14.6 % (11.5-14.5); WHITE BLOOD COUNT 9.5 10^3/ul (4.8-10.8)
[2016-12-04 08:14] LABS: INR 0.98
[2016-12-04 08:15] LABS: PARTIAL THROMBOPLASTIN TIME 29.8 Sec (25.0-35.0)
[2016-12-04 08:19] LABS: CREATININE 0.62 mg/dl (0.44-1.00); MAGNESIUM 2.2 mg/dl (1.7-2.5); PHOSPHORUS 2.7 mg/dl (2.5-4.9); POTASSIUM 3.6 mmol/L (3.5-5.1)
[2016-12-04] MEDS: DOCUSATE SODIUM 100 MG CAP PO SCH ×2 (08:28→20:22)
[2016-12-04] MEDS: ARTIFICIAL TEARS 15 ML OPH BOTH EYES SCH ×3 (08:28→20:22)
[2016-12-04] MEDS: LAMOTRIGINE 100 MG TAB PO SCH ×2 (08:29→20:22)
[2016-12-04] MEDS: FAMOTIDINE 20 MG TAB PO SCH ×2 (08:29→20:21)
[2016-12-04] MEDS: NICOTINE (21 MG/24 HR) PATCH TRANSDERM SCH (08:30)
[2016-12-04] MEDS ORDERED: LOSARTAN 25 MG TAB PO SCH (10:00)
--- NOTE | 2016-12-04 10:05 | PN ---
Date/Time of Note Date/Time of Note DATE: 12/04/16 TIME: 09:29 Assessment/Plan VTE Prophylaxis VTE Prophylaxis Intervention: SCD's Lines/Catheters IV Catheter Type (from Nrs): Peripheral IV Urinary Cath still in place: Yes Reason Cath still needed: other (indicate) (discontinue today ) Assessment/Plan Assessment/Plan 61 yo female with: 1. Acute 3 mm posterior falcine subdural hemorrhage: Repeat CAT scan with stable small posterior falx subdural hematoma. MRI with no acute CVA. CT angiogram head and neck negative for major stenosis, Appreciate recommendations from neurosurgery, patient was given DDAVP, Plavix discontinued, platelet transfusion ordered. No surgical intervention needed, transferred to Tele as of last night. Needs 1: 1 sitter Blood pressure control, currently, OFF Cardene drip and to start Cozaar. 2. Seizure disorder: Continue Lamictal, No seizures witnessed since admission On Lamictal. Ativan prn seizures. 3. Hypertension: Start Norvasc and continue Hydralazine as needed. 4. Hyperlipidemia: Continue statin therapy. 5. Congestive heart failure, likely mild diastolic dysfunction: Stable volume status, resume Lasix if needed 2D echocardiogram with EF 65% 6. Tobacco use: Patient refusing to quit, nicotine patch while inpatient. Prophylaxis: SCDs for DVT prophylaxis, Pepcid for GI prophylaxis Disposition: Telemetry as of last night with 1:1 sitter, BP control and PT eval , hopefully SNF placement within 24 to 48 hrs if no seizures and may need sitter at SNF initially as impulsive. Subjective 24 Hr Interval Summary Free Text/Dictation Patient doing better today and has been Telemetry boarding in ICU Afebrile Appreciate recs from Neurosurgery Exam/Review of Systems Vital Signs Vitals Vital Signs Date Time Temp Pulse Resp B/P Pulse Ox O2 Delivery O2 Flow Rate FiO2 12/04/16 06:00 74 22 148/97 91 Room Air 12/04/16 04:00 98.1 12/03/16 18:00 2.0 Intake and Output 12/03/16 12/03/16 12/04/16 14:59 22:59 06:59 Intake Total 400 ml 520 ml 450 ml Output Total 65 ml 300 ml 425 ml Balance 335 ml 220 ml 25 ml Exam Constitutional: alert, oriented (x3), well developed Respiratory: clear to auscultation, normal air movement Cardiovascular: nl pulses, regular rate and rhythm Gastrointestinal: non-tender, soft Musculoskeletal: nl extremities to inspection Extremities: normal pulses, other (no edema, clubbing or cyanosis ) 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, nl mental status, nl speech, nl strength Results Result Diagram: 12/04/16 0735 12/04/16 0735 Results 24 hrs Laboratory Tests Test 12/04/16 07:35 White Blood Count 9.5 Red Blood Count 4.75 Hemoglobin 13.6 Hematocrit 41.0 Mean Corpuscular Volume 86.3 Mean Corpuscular Hemoglobin 28.6 L Mean Corpuscular Hemoglobin Concent 33.2 Red Cell Distribution Width 14.6 H Platelet Count 198 Mean Platelet Volume 11.1 H Neutrophils % 69.1 Lymphocytes % 18.2 Monocytes % 7.9 Eosinophils % 3.5 Basophils % 0.8 Nucleated Red Blood Cells % 0.0 Neutrophils # (Manual) 6.6 Lymphocytes # 1.7 Monocytes # 0.8 Eosinophils # 0.3 Basophils # 0.1 Nucleated Red Blood Cells # 0.0 Prothrombin Time 13.0 Prothrombin Time Ratio 1.0 INR International Normalized Ratio 0.98 Activated Partial Thromboplast Time 29.8 Sodium Level 137 Potassium Level 3.6 Chloride Level 105 Carbon Dioxide Level 25 Anion Gap 11 Blood Urea Nitrogen 7 Creatinine 0.62 Glucose Level 102 Calcium Level 9.0 Phosphorus Level 2.7 Magnesium Level 2.2 Medications Medications Current Medications Ondansetron HCl (Zofran Inj) 4 mg Q6H PRN IV NAUSEA AND/OR VOMITING; Start at 18:00 Acetaminophen (Tylenol Tab) 650 mg Q6H PRN PO PAIN; Start 12/02/16 at 18:00 Acetaminophen (Tylenol Supp) 650 mg Q4H PRN [place] PAIN LEVEL 1-3 OR FEVER; Start 12/02/16 at 18:00 Morphine Sulfate (morphine) 2 mg Q4H PRN IV PAIN LEVEL 7-10; Start 12/02/16 at 18:00 Docusate Sodium (Colace) 100 mg Q12H PRN PO CONSTIPATION; Start 12/02/16 at 18: 00 Magnesium Hydroxide (Milk Of Mag) 30 ml DAILY PRN PO CONSTIPATION; Start at 18:00 Bisacodyl (Dulcolax Supp) 10 mg DAILY PRN [place] CONSTIPATION; Start 12/02/16 at 18 :00 Famotidine (Pepcid) 20 mg Q12 PO Last administered on 12/04/16 08:29; Admin Dose 20 MG; Start 12/02/16 at 21:00 Eye Lubricant (Artificial Tears Oph) 1 drop TID BOTH EYES Last administered on 12/04/16 08:28; Admin Dose 1 DROP; Start 12/02/16 at 21:00 Acetaminophen (Tylenol Tab) 650 mg Q4H PRN PO TEMP GREATER THAN 99.6F; Start at 18:00 Docusate Sodium (Colace) 100 mg BID PO Last administered on 12/04/16 08:28; Admin Dose 100 MG; Start 12/02/16 at 21:00 Atorvastatin Calcium (Lipitor) 20 mg QHS PO Last administered on 12/03/16 20: 18; Admin Dose 20 MG; Start 12/02/16 at 21:00 Lamotrigine (Lamictal) 100 mg BID PO Last administered on 12/04/16 08:29; Admin Dose 100 MG; Start 12/02/16 at 21:00 Pantoprazole (Protonix Tab) 40 mg DAILY@06 PO Last administered on 12/04/16 05: 53; Admin Dose 40 MG; Start 12/03/16 at 06:00 Nicotine (Nicoderm 21 Mg/ 24hr) 1 patch DAILY TRANSDERM Last administered on 08:30; Admin Dose 1 PATCH; Start 12/02/16 at 20:30 Hydralazine HCl (Apresoline) 10 mg Q6 PRN IV ELEVATED BLOOD PRESSURE; Start at 20:30 Lorazepam (Ativan) 1 mg Q2 PRN IV SEIZURES Last administered on 12/03/16 02:03 ; Admin Dose 1 MG; Start 12/02/16 at 23:00 Procedures Procedures PROCEDURE: CTA Head and neck. CLINICAL INDICATION: Intracranial hemorrhage TECHNIQUE: CTA of the head and neck was obtained . Sagittal and coronal reformations and MIPs were provided. The administered radiation dose was CTDI vol = 17.1 mGy, DLP = 644 mGy-cm. Images were obtained prior following the intravenous contrast administration of 100 cc of Omnipaque 300 contrast. Coronal and sagittal as well as maximal intensity projection reformations were obtained. COMPARISON: 12/02/2016 FINDINGS: CTA head: Carotid arteries: Some mild atherosclerotic calcifications are noted within the cavernous and supraclinoid carotid arteries without significant narrowing. Anterior cerebral arteries: Unremarkable. Middle cerebral arteries: Unremarkable. Posterior cerebral arteries: Unremarkable. Anterior communicating artery: Present. Posterior communicating arteries: Patent on the left. Not definitely seen on the right. Basilar artery: Unremarkable. No aneurysm is identified.The venous sinuses are patent. CTA neck: Aorta:Within normal limits. Right carotid artery Common carotid artery: Unremarkable. Internal carotid artery: Some atherosclerotic calcifications are noted in the carotid bulb. No significant stenosis by NASCET criteria. External carotid artery: Unremarkable. Left carotid artery Common carotid artery: There is some noncalcified plaque within the left distal common carotid artery with approximately 30% narrowing by NASCET criteria. Internal carotid artery: Some atherosclerotic calcifications are noted in the carotid bulb. No significant stenosis by NASCET criteria. External carotid artery: Unremarkable. Vertebral arteries: Unremarkable. Vertebral artery dominance: Right CT neck with contrast: Small nodules are noted within the right thyroid lobe. There is no cervical adenopathy. IMPRESSION: No internal carotid artery stenosis by NASCET criteria. Mild narrowing of the left common carotid artery. No intracranial aneurysm or stenosis. RPTAT: HJAH .Francisco Javier Desir MD, MD Date Time Electronically viewed and signed by .Francisco Javier Desir MD, MD on 12/03/2016 02:53 PROCEDURE: MR Brain with and without contrast. 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 Additionally, post contrast coronal 3-D FSPGR, axial, sagittal and coronal T1-weighted sequences were acquired after the uneventful intravenous administration of 10 cc of Magnevist. COMPARISON: CT of the brain 12/02/2016 FINDINGS: No diffusion weighted abnormalities are seen to suggest the presence of acute ischemia or recent infarct. No hypointense signal abnormalities are seen on the GRE images to suggest the presence of blood degradation products. Mild frontal atrophy is evident. Scattered T2-weighted/FLAIR hyperintensities are seen in the periventricular and subcortical white matter, consistent with moderate microvascular ischemic disease. The signal intensity is normal the brainstem and cerebellum. No hypointense signal abnormalities are seen on the GRE images to suggest the presence of blood degradation products. The medial temporal lobes are bilaterally symmetric and normal in appearance. The sellar, parasellar regions are normal. Normal flow voids are visible in the proximal intracranial arteries and dural sinuses, indicating patency. The postcontrast images show no abnormal parenchymal, leptomeningeal, or dural enhancement. The craniocervical junction is normal. There is a retention cyst in the right maxillary sinus. IMPRESSION: 1. No evidence of acute ischemia. 2. Moderate microvascular ischemic disease. 3. No evidence of mesial temporal sclerosis. Physician Ann-Marie Date Time Electronically viewed and signed by Physician Ann-Marie on 12/04/2016 06: 13 DOMINICK SILVEIRA Dec 04, 2016 09:39
[2016-12-04] MEDS: AMLODIPINE 5 MG TAB PO SCH ×2 (10:12→20:22)
[2016-12-04] MEDS: hydrALAzine 20 MG INJ IV PRN ×2 (11:20→19:01)
[2016-12-04] MEDS ORDERED: hydrALAzine 20 MG INJ IV ONE (12:00)
[2016-12-04] MEDS: ATORVASTATIN 20 MG TAB PO SCH (20:21)
[2016-12-05] VITALS (15 sets, daily range): BP systolic 125–166; BP diastolic 57–78; PULSE 79–87; RESP 16–18
[2016-12-05] MEDS: PANTOPRAZOLE (EC) 40 MG TAB PO SCH (05:13)
[2016-12-05] MEDS: DOCUSATE SODIUM 100 MG CAP PO SCH ×3 (08:32→21:19)
[2016-12-05] MEDS: FAMOTIDINE 20 MG TAB PO SCH ×2 (08:33→21:19)
[2016-12-05] MEDS: LAMOTRIGINE 100 MG TAB PO SCH ×2 (08:33→21:20)
[2016-12-05] MEDS: NICOTINE (21 MG/24 HR) PATCH TRANSDERM SCH (08:33)
[2016-12-05] MEDS: AMLODIPINE 5 MG TAB PO SCH ×2 (08:33→21:19)
[2016-12-05] MEDS: ARTIFICIAL TEARS 15 ML OPH BOTH EYES SCH ×4 (09:00→21:18)
[2016-12-05 09:48] LABS: CALCIUM 9.4 mg/dl (8.4-10.2); CREATININE 0.71 mg/dl (0.44-1.00)
[2016-12-05 09:49] LABS: MAGNESIUM 2.2 mg/dl (1.7-2.5); PHOSPHORUS 3.3 mg/dl (2.5-4.9)
--- NOTE | 2016-12-05 11:55 | QN ---
Documentation Comment This is a follow up note. The patient is doing well today, is wide awake and alert. Fully oriented. She is moving all extremities 5/5. I reviewed MRI and CT and these studies do not show any evidence of recent ischemic disease or structural etiology for seizure. She is cleared for discharge from my perspective to follow up with her neurologist for adjustment to her seizure meds etc. No neurosurgical follow up is needed unless the patient develops a new complaint. Thank you. WANDER STATON MD Dec 05, 2016 11:55
--- NOTE | 2016-12-05 15:25 | PN ---
Date/Time of Note Date/Time of Note DATE: 12/05/16 TIME: 15:23 Assessment/Plan VTE Prophylaxis VTE Prophylaxis Intervention: SCD's Lines/Catheters IV [facility] [place] Urinary Cath still in place: No Assessment/Plan Chief Complaint/Hosp Course 1. Acute 3 mm posterior falcine subdural hemorrhage: Repeat CAT scan with stable small posterior falx subdural hematoma. MRI with no acute CVA. CT angiogram head and neck negative for major stenosis, Appreciate recommendations from neurosurgery, patient was given DDAVP, Plavix discontinued, platelet transfusion ordered. No surgical intervention needed, transferred to [facility] as of last night. Needs 1: 1 sitter Blood pressure control, currently, OFF Cardene drip and to start Cozaar. 2. Seizure disorder: Continue Lamictal, No seizures witnessed since admission On Lamictal. Ativan prn seizures. 3. Hypertension: Start Norvasc and continue Hydralazine as needed. 4. Hyperlipidemia: Continue statin therapy. 5. Congestive heart failure, likely mild diastolic dysfunction: Stable volume status, resume Lasix if needed 2D echocardiogram with EF 65% 6. Tobacco use: Patient refusing to quit, nicotine patch while inpatient. Prophylaxis: SCDs for DVT prophylaxis, Pepcid for GI prophylaxis Disposition: Continue telemetry, with 1:1 sitter, BP control and PT eval, hopefully SNF placement within 24 to 48 hrs if no seizures and may need sitter at SNF initially as impulsive. Problems: Subjective 24 Hr Interval Summary Constitutional: no complaints Exam/Review of Systems Vital Signs Vitals Vital Signs Date Time Temp Pulse Resp B/P Pulse Ox O2 Delivery O2 Flow Rate FiO2 12/05/16 12:29 84 12/05/16 11:28 98.1 18 166/77 91 12/05/16 04:00 Room Air 12/03/16 18:00 2.0 Intake and Output 12/04/16 12/04/16 12/05/16 15:00 23:00 07:00 Intake Total 375 ml 250 ml 120 ml Output Total 650 ml Balance -275 ml 250 ml 120 ml Exam Constitutional: alert, oriented Respiratory: clear to auscultation Cardiovascular: regular rate and rhythm Gastrointestinal: soft, No distended Musculoskeletal: nl extremities to inspection Results Result Diagram: 12/04/16 0735 12/05/16 0828 Results 24 hrs Laboratory Tests Test 12/05/16 08:28 Sodium Level 142 Potassium Level 4.0 Chloride Level 108 Carbon Dioxide Level 26 Anion Gap 12 Blood Urea Nitrogen 11 Creatinine 0.71 Glucose Level 94 Calcium Level 9.4 Phosphorus Level 3.3 Magnesium Level 2.2 Medications Medications Current Medications Ondansetron HCl (Zofran Inj) 4 mg Q6H PRN IV NAUSEA AND/OR VOMITING Last administered on 12/04/16 11:57; Admin Dose 4 MG; Start 12/02/16 at 18:00 Acetaminophen (Tylenol Tab) 650 mg Q6H PRN PO PAIN; Start 12/02/16 at 18:00 Acetaminophen (Tylenol Supp) [address] PAIN LEVEL 1-3 OR FEVER; Start 12/02/16 at 18:00 Morphine Sulfate (morphine) 2 mg Q4H PRN IV PAIN LEVEL 7-10 Last administered on 12/04/16 11:57; Admin Dose 2 MG; Start 12/02/16 at 18:00 Docusate Sodium (Colace) 100 mg Q12H PRN PO CONSTIPATION; Start 12/02/16 at 18: 00 Magnesium Hydroxide (Milk Of Mag) 30 ml DAILY PRN PO CONSTIPATION; Start at 18:00 Bisacodyl (Dulcolax Supp) [address] CONSTIPATION; Start 12/02/16 at 18 :00 Famotidine (Pepcid) 20 mg Q12 PO Last administered on 12/05/16 08:33; Admin Dose 20 MG; Start 12/02/16 at 21:00 Eye Lubricant (Artificial Tears Oph) 1 drop TID BOTH EYES Last administered on 12/05/16 13:43; Admin Dose 1 DROP; Start 12/02/16 at 21:00 Acetaminophen (Tylenol Tab) 650 mg Q4H PRN PO TEMP GREATER THAN 99.6F; Start at 18:00 Docusate Sodium (Colace) 100 mg BID PO Last administered on 12/05/16 08:32; Admin Dose 100 MG; Start 12/02/16 at 21:00 Atorvastatin Calcium (Lipitor) 20 mg QHS PO Last administered on 12/04/16 20:21 ; Admin Dose 20 MG; Start 12/02/16 at 21:00 Lamotrigine (Lamictal) 100 mg BID PO Last administered on 12/05/16 08:33; Admin Dose 100 MG; Start 12/02/16 at 21:00 Pantoprazole (Protonix Tab) 40 mg DAILY@06 PO Last administered on 12/05/16 05: 13; Admin Dose 40 MG; Start 12/03/16 at 06:00 Nicotine (Nicoderm 21 Mg/ 24hr) 1 patch DAILY TRANSDERM Last administered on 08:33; Admin Dose 1 PATCH; Start 12/02/16 at 20:30 Hydralazine HCl (Apresoline) 10 mg Q6 PRN IV ELEVATED BLOOD PRESSURE Last administered on 12/04/16 19:01; Admin Dose 10 MG; Start 12/02/16 at 20:30 Lorazepam (Ativan) 1 mg Q2 PRN IV SEIZURES Last administered on 12/03/16 02:03 ; Admin Dose 1 MG; Start 12/02/16 at 23:00 Amlodipine Besylate (Norvasc) 5 mg BID PO Last administered on 12/05/16 08:33; Admin Dose 5 MG; Start 12/04/16 at 10:30 EPI EPPS Dec 05, 2016 15:25
[2016-12-05] MEDS: ATORVASTATIN 20 MG TAB PO SCH (21:19)
[2016-12-06] VITALS (9 sets, daily range): BP systolic 120–131; BP diastolic 69–86; PULSE 70–82; RESP 18–21
[2016-12-06] MEDS: PANTOPRAZOLE (EC) 40 MG TAB PO SCH (07:00)
[2016-12-06] MEDS: AMLODIPINE 5 MG TAB PO SCH (08:30)
[2016-12-06] MEDS: FAMOTIDINE 20 MG TAB PO SCH (08:30)
[2016-12-06] MEDS: NICOTINE (21 MG/24 HR) PATCH TRANSDERM SCH (08:30)
[2016-12-06] MEDS: ARTIFICIAL TEARS 15 ML OPH BOTH EYES SCH ×2 (08:30→13:21)
[2016-12-06] MEDS: DOCUSATE SODIUM 100 MG CAP PO SCH (08:30)
[2016-12-06] MEDS: LAMOTRIGINE 100 MG TAB PO SCH (08:30)
[2016-12-06] MEDS ORDERED: AMLO-145 PO (16:40)
--- NOTE | 2016-12-06 19:25 | DS ---
Date/Time of Note Date/Time of Note DATE: 12/06/16 TIME: 19:20 Discharge Summary Admission/Discharge Info Admit Date/Time Dec 02, 2016 at 17:48 Discharge Date/Time Dec 06, 2016 at 18:25 Discharge Diagnosis 1. Acute 3 mm posterior falcine subdural hemorrhage: Repeat CAT scan with stable small posterior falx subdural hematoma. MRI with no acute CVA. CT angiogram head and neck negative for major stenosis Appreciate recommendations from neurosurgery, patient was given DDAVP, Plavix discontinued, platelet transfusion ordered, DC per neurosurgery No surgical intervention needed 2. Seizure disorder: Continue Lamictal, No seizures witnessed since admission Continue home Lamictal 3. Hypertension DC with Norvasc 4. Hyperlipidemia: Continue statin therapy. 5. Congestive heart failure, likely mild diastolic dysfunction: Stable volume status, resume Lasix 2D echocardiogram with EF 65% 6. Tobacco use: Patient refusing to quit, nicotine patch 7. 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 Patient had a witnessed seizure and as part of her workup she had a CAT scan of the brain that showed small area of subdural hemorrhage. Patient was given DDAVP and platelets since she is on Plavix, repeat CAT scan 6 hours later shows stable small subdural hematoma. She was seen by Dr. Ty from Neurosurgery there is no indication for intervention patient was deemed stable for DC. Was started on Norvasc for BP control. At baseline patient is noted to have a lot of impulsivity and also occasionally forgetful. She likely has signs of dementia possibly vascular dementia was felt that patient requires nursing placement. guest relations manager arrange for long-term and on the day of discharge patient's vitals, labs and physical exam are stable. Home Meds Active Scripts Amlodipine Besylate* (Amlodipine Besylate*) 5 Mg Tablet, 5 MG PO BID, #30 TAB Prov:JEET EPPSVinod 12/06/16 Reported Medications Omeprazole* (Omeprazole*) 20 Mg Capsule., 20 MG PO DAILY, #30 CAP 12/02/16 Lamotrigine* (Lamotrigine*) 100 Mg Tablet, 100 MG PO BID, TAB 12/02/16 Furosemide* (Furosemide*) 20 Mg Tablet, 20 MG PO DAILY, #60 TAB 12/02/16 Atorvastatin Calcium* (Atorvastatin Calcium*) 20 Mg Tablet, 20 MG PO QHS, #30 TAB 12/02/16 Discontinued Reported Medications Clopidogrel Bisulfate (Clopidogrel) 75 Mg Tablet, 75 MG PO DAILY, #30 TAB 12/02/16 Follow-up Plan Follow up with physicians [facility] facility Primary Care Provider Not On Staff Doctor Time spent on discharge: > 30 minutes EPI EPPS Dec 06, 2016 19:25
== END 2016-12-06 18:25 | DRG 65 ==
LOC: E/R 12:31 → ICU 17:48 → MS4 12-04 20:46 → TEL 12-05 06:19
PROVIDERS: ADMIT Internal Medicine; ATTEND Internal Medicine
PROC: 30233R1 Transfusion of Nonautologous Platelets into Peripheral Vein, Percutaneous Approach (ICD-10-PCS; principal; 2016-12-04)
DX: I62.01 Nontraumatic acute subdural hemorrhage (principal); I50.30 Unspecified diastolic (congestive) heart failure; I11.0 Hypertensive heart disease with heart failure; F01.50 Vascular dementia, unspecified severity, without behavioral disturbance, psychotic disturbance, mood disturbance, and anxiety; G40.909 Epilepsy, unspecified, not intractable, without status epilepticus; E78.5 Hyperlipidemia, unspecified; Z72.0 Tobacco use; Z86.73 Personal history of transient ischemic attack (TIA), and cerebral infarction without residual deficits; Z79.02 Long term (current) use of antithrombotics/antiplatelets
CPT/HCPCS: 36430; 70450; 70496; 70498; 70551; 80048; 80053; 80061; 83735; 84100; 85025; 85610; 85730; 86644; 86850; 86900; 86901; 87081; 92610; 93005; 93306; 96374; 96375; 96376; 97162; J0360; J2060; J2270; J2405; J2597; J7030; J7040; J7042; J7050; P9035; Q9967

== ENCOUNTER 2017-01-07 04:08 | Emergency (ER) | payer OTHER ==
[~2017-01-07] VITALS: Ht 160 cm; Wt 110.0 kg
[~2017-01-07 04:08] MED LIST: AMLO-145 PO; ATOR20TA38 PO; FURO20TA3 PO; LAMO100T PO; OMEP20CA16 PO
[2017-01-07 04:19] VITALS: Ht 160 cm; Wt 110.0 kg
[2017-01-07] MEDS ORDERED: hydrALAzine 20 MG INJ IV ONE (04:35)
[2017-01-07] MEDS ORDERED: ONDANSETRON 4 MG INJ IV ONE (04:35)
[2017-01-07 04:47] LABS: BASOPHIL # 0.1 10^3/ul (0.0-0.1); BASOPHILS % 0.8 % (0.0-2.0); EOSINOPHILS # 1.4 10^3/ul (0.0-0.5); EOSINOPHILS % 11.7 % (0.0-7.0); HEMATOCRIT 44.5 % (37.0-47.0); HEMOGLOBIN 14.1 g/dl (12.0-16.0); LYMPHOCYTES # 4.3 10^3/ul (0.8-2.9); LYMPHOCYTES % 35.4 % (15.0-51.0); MEAN CORPUSCULAR HGB CONC 31.7 g/dl (32.0-37.0); MEAN CORPUSCULAR VOLUME 88.5 fl (82.0-101.0); MEAN PLATELET VOLUME 11.8 fl (7.4-10.4); MONOCYTE # 0.9 10^3/ul (0.3-0.9); NEUTROPHIL # 5.4 10^3/ul (1.6-7.5); NEUTROPHILS % 43.9 % (39.0-77.0); PLATELET COUNT 170 10^3/UL (140-415); RED BLOOD COUNT 5.03 10^6/ul (4.20-5.40); RED CELL DISTRIBUTION WIDTH 15.1 % (11.5-14.5); WHITE BLOOD COUNT 12.3 10^3/ul (4.8-10.8)
[2017-01-07 05:13] LABS: ALBUMIN 4.3 g/dl (3.3-4.9); ALBUMIN/GLOBULIN RATIO 1.16; BILIRUBIN,INDIRECT 0.2 mg/dl (0-1.1); BILIRUBIN,TOTAL 0.2 mg/dl (0.2-1.3); CALCIUM 9.8 mg/dl (8.4-10.2); CREATININE 0.68 mg/dl (0.44-1.00); POTASSIUM 3.1 mmol/L (3.5-5.1)
--- NOTE | 2017-01-07 05:22 | RADRPT ---
PROCEDURE: CT Abdomen and pelvis without contrast. CLINICAL INDICATION: Abdominal pain. TECHNIQUE: CT scan of the abdomen and pelvis was performed on a multi-detector high-resolution CT scanner. Contiguous axial images were obtained from the lung bases to the ischial tuberosities wit hout intravenous contrast. Coronal and sagittal reformatted images were also obtained. Images were reviewed on the PACS workstation. One or more of the following dose reduction techniques were used: - Automated exposure control. - Adjustment of the mA and/or kV according to patient size. - Use of iterative reconstruction technique. Exam CTD/vol = 23.15 mGy. Total exam DLP = 1483.29 mGy-cm. COMPARISON: None. FINDINGS: Evaluation of the lung bases demonstrates mild bibasilar atelectasis. There is a small hiatal hernia . Abdomen: The liver is normal in size. There is no focal mass or dilatation of the biliary tree. T he patient is status post cholecystectomy. The spleen, pancreas and bilateral adrenal glands are wi thin normal limits. Bilateral kidneys are normal in size with a cyst within the upper pole of the r ight kidney. There are bilateral renal calcifications the largest in the mid right kidney measuring 3 mm, some which could be vascular or represent calculi. There is no radiopaque ureteral calculus i dentified. There is no hydronephrosis or hydroureter. There is no retroperitoneal adenopathy. The abdominal aorta is of normal caliber with scattered atherosclerotic calcifications. There is no abnormal bowel wall thickening or distension. There is no bowel obstruction or free air . A normal appendix is identified. There are scattered colonic diverticuli without evidence of div erticulitis. There is no ascites. Pelvis: The bladder is unremarkable. There are small calcified uterine fibroids. There is no sign ificant pelvic adenopathy or free fluid. Evaluation of the osseous structures demonstrates no suspicious lytic or blastic lesion. There is a mild compression deformity of the L4 vertebral body with up to 25% loss in the tear body height with minimal bony retropulsion. IMPRESSION: Scattered colonic diverticuli without evidence of diverticulitis. Bilateral small renal calcifications could be vascular or represent calculi. There is no radiopaque ureteral calculus or obstructive uropathy. Vascular calcifications reflective of atherosclerosis. Small hiatal hernia. Mild bibasilar atelectasis. Status post cholecystectomy. Small calcified uterine fibroids. Mild compression deformity of L4, age indeterminate. Otherwise no acute abnormality identified within the abdomen and pelvis. .Phillip Neal MD, MD Date Time Electronically viewed and signed by .Phillip Neal MD, MD on 01/07/2017 05:22 .T/
--- NOTE | 2017-01-07 05:35 | ERA ---
ER Documentation Chief Complaint Date/Time DATE: 01/07/17 TIME: 05:33 Chief Complaint bib ra from assisted living [facility] for n/v this morning HPI This is a 61-year-old female brought in by ambulance from assisted living for nausea and vomiting this morning. She said she vomited once nonbilious nonbloody but has been nauseous for about 6 hours. No fevers no chills. There is no blood in vomit. No abdominal pain. No chest pain. No other current complaints. ROS All systems reviewed and are negative except as per history of present illness. Medications Home Meds Active Scripts Amlodipine Besylate* (Amlodipine Besylate*) 5 Mg Tablet, 5 MG PO BID, #30 TAB Prov:EPI EPPS 12/06/16 Reported Medications Omeprazole* (Omeprazole*) 20 Mg Capsule.dr, 20 MG PO DAILY, #30 CAP 12/02/16 Lamotrigine* (Lamotrigine*) 100 Mg Tablet, 100 MG PO BID, TAB 12/02/16 Furosemide* (Furosemide*) 20 Mg Tablet, 20 MG PO DAILY, #60 TAB 12/02/16 Atorvastatin Calcium* (Atorvastatin Calcium*) 20 Mg Tablet, 20 MG PO QHS, #30 TAB 12/02/16 Allergies Allergies: Coded Allergies: aspirin (Verified Allergy, Severe, 12/02/16) atenolol (Verified Allergy, Severe, 12/02/16) chlorthalidone (Verified Allergy, Severe, 12/02/16) lisinopril (Verified Allergy, Severe, 12/02/16) losartan (Verified Allergy, Severe, 12/02/16) PMhx/Soc History of Surgery: Yes (cataract sx) Anesthesia Reaction: No Hx Neurological Disorder: Yes (CVA ) Hx Respiratory Disorders: No Hx Cardiac Disorders: Yes (CHF) Hx Psychiatric Problems: Yes (auditory hallucinations) Hx Miscellaneous Medical Probl: Yes (CVA x2, HTN, HLD, CHF) Hx Alcohol Use: No Hx Substance Use: No Hx Tobacco Use: Yes Smoking Status: Current every day smoker Physical Exam Vitals Vital Signs Date Time Temp Pulse Resp B/P Pulse Ox O2 Delivery O2 Flow Rate FiO2 01/07/17 05:16 79 18 151/92 97 Nasal Cannula 2.0 01/07/17 04:19 98.5 81 24 217/109 92 Physical Exam Const: [] Head: Atraumatic Eyes: Normal Conjunctiva ENT: Normal External Ears, Nose and Mouth. Neck: Full range of motion..~ No meningismus. Resp: Clear to auscultation bilaterally Cardio: Regular rate and rhythm, no murmurs Abd: Soft, non tender, non distended. Normal bowel sounds Skin: No petechiae or rashes Back: No midline or flank tenderness Ext: No cyanosis, or edema Neur: Awake and alert Psych: Normal Mood and Affect Result Diagram: 01/07/1741901/07/17419 Results 24 hrs Laboratory Tests Test 01/07/17 04:20 White Blood Count 12.310^3/ul Red Blood Count 5.0310^6/ul Hemoglobin 14.1g/dl Hematocrit 44.5% Mean Corpuscular Volume 88.5fl Mean Corpuscular Hemoglobin 28.0pg Mean Corpuscular Hemoglobin Concent 31.7g/dl Red Cell Distribution Width 15.1% Platelet Count 81720^3/UL Mean Platelet Volume 11.8fl Neutrophils % 43.9% Lymphocytes % 35.4% Monocytes % 7.0% Eosinophils % 11.7% Basophils % 0.8% Nucleated Red Blood Cells % 0.0/100WBC Neutrophils # 5.410^3/ul Lymphocytes # 4.310^3/ul Monocytes # 0.910^3/ul Eosinophils # 1.410^3/ul Basophils # 0.110^3/ul Nucleated Red Blood Cells # 0.010^3/ul Sodium Level 143mmol/L Potassium Level 3.1mmol/L Chloride Level 106mmol/L Carbon Dioxide Level 26mmol/L Anion Gap 14 Blood Urea Nitrogen 16mg/dl Creatinine 0.68mg/dl Glucose Level 153mg/dl Calcium Level 9.8mg/dl Total Bilirubin 0.2mg/dl Direct Bilirubin 0.00mg/dl Indirect Bilirubin 0.2mg/dl Aspartate Amino Transf (AST/SGOT) 24IU/L Alanine Aminotransferase (ALT/SGPT) 36IU/L Alkaline Phosphatase 138IU/L Total Protein 8.0g/dl Albumin 4.3g/dl Globulin 3.70g/dl Albumin/Globulin Ratio 1.16 Lipase 121U/L Current Medications Medications (Trade) Dose Ordered Sig/Alysha Route PRN Reason Start Time Stop Time Status Last Admin Dose Admin Ondansetron HCl (Zofran Inj) 4 mg ONCE ONCE IV 01/07/17 04:35 01/07/17 04:36 DC 01/07/17 04:38 Hydralazine HCl (Apresoline) 20 mg ONCE ONCE IV 01/07/17 04:35 01/07/17 04:36 DC 01/07/17 04:38 Procedures/MDM Medical decision making: This 61-year-old female who comes in with nausea vomiting. There is no evidence of surgical abdomen. At this point is clinically stable for outpatient management. Recommend 8 hour follow-up. Discharge home with Zofran. Departure Diagnosis: Primary Impression: Vomiting Qualified Code: R11.10 - Vomiting, intractability of vomiting not specified, presence of nausea not specified, unspecified vomiting type Condition: Stable HELDER MEYERS Jan 07, 2017 05:35
[2017-01-07] MEDS ORDERED: ONDA4TAB14 PO (05:36)
[2017-01-07 09:20] VITALS: BP 113/81; PULSE 78; RESP 18; TEMP 98.9
== END 2017-01-07 09:23 | disposition home or self-care (01) ==
LOC: E/R 04:08
DX: R11.10 Vomiting, unspecified (principal); I50.9 Heart failure, unspecified; I10 Essential (primary) hypertension; F17.210 Nicotine dependence, cigarettes, uncomplicated
CPT/HCPCS: 36415; 74176; 80053; 83690; 85025; 96374; 96375; J0360; J2405; Z7502

== ENCOUNTER 2017-03-05 18:38 | Emergency (ER) | payer OTHER ==
[~2017-03-05] VITALS: Ht 165.1 cm; Wt 97.7 kg
[~2017-03-05 18:38] MED LIST changes: +ONDA4TAB14 PO
[2017-03-05 19:03] VITALS: Ht 165.1 cm; Wt 97.7 kg
[2017-03-05 22:00] VITALS: PULSE 74
[2017-03-05 22:43] LABS: BASOPHIL # 0.1 10^3/ul (0.0-0.1); BASOPHILS % 0.6 % (0.0-2.0); EOSINOPHILS # 0.3 10^3/ul (0.0-0.5); EOSINOPHILS % 2.4 % (0.0-7.0); HEMATOCRIT 42.3 % (37.0-47.0); HEMOGLOBIN 13.9 g/dl (12.0-16.0); LYMPHOCYTES # 1.6 10^3/ul (0.8-2.9); LYMPHOCYTES % 12.5 % (15.0-51.0); MEAN CORPUSCULAR HGB CONC 32.9 g/dl (32.0-37.0); MEAN CORPUSCULAR VOLUME 88.1 fl (82.0-101.0); MEAN PLATELET VOLUME 11.7 fl (7.4-10.4); MONOCYTE # 0.5 10^3/ul (0.3-0.9); MONOCYTES % 3.9 % (0.0-11.0); NEUTROPHIL # 10.2 10^3/ul (1.6-7.5); NEUTROPHILS % 79.6 % (39.0-77.0); PLATELET COUNT 191 10^3/UL (140-415); RED CELL DISTRIBUTION WIDTH 14.6 % (11.5-14.5); WHITE BLOOD COUNT 12.8 10^3/ul (4.8-10.8)
[2017-03-05] MEDS ORDERED: MELO-216 PO (22:58)
[2017-03-05] MEDS ORDERED: CLOP75TA27 PO (22:58)
[2017-03-05] MEDS ORDERED: ACET325T45 PO (22:58)
[2017-03-05] MEDS ORDERED: DOCU-159 PO (22:59)
--- NOTE | 2017-03-05 23:02 | ERD ---
ER Documentation Chief Complaint Chief Complaint dizziness, vomiting, lightheadedness HPI The patient is a 62-year-old female, stenting to the ER because of lightheadedness, dizziness, vomiting today. The symptoms are better if she closes her eyes, similar symptoms previously. She denies fever, chills, neck pain, chest pain, planes of abdominal pain after vomiting, denied dysuria, diarrhea, constipation. She does smoke, denies drinking Past medical history: History of CHF, epilepsy, h/o left subdural hematoma, hypertension, dyslipidemia, GERD Past surgical history: Cholecystectomy ROS All systems reviewed and are negative except as per history of present illness. Medications Home Meds Active Scripts Ondansetron Hcl* (Zofran*) 4 Mg Tablet, 4 MG PO Q6H for NAUSEA AND/OR VOMITING, #10 TAB Prov:ANNY GONZALEZ MD 03/06/17 Meclizine Hcl* (Meclizine Hcl*) 25 Mg Tablet, 25 MG PO Q6 Y for DIZZINESS, #20 TAB Prov:ANNY GONZALEZ MD 03/06/17 Ondansetron (Ondansetron Odt) 4 Mg Tab.rapdis, 4 MG PO Q6H Y for NAUSEA AND/OR VOMITING, #10 TAB Prov:HELDER MEYERS 01/07/17 Amlodipine Besylate* (Amlodipine Besylate*) 5 Mg Tablet, 5 MG PO BID, #30 TAB Prov:EPI EPPS 12/06/16 Reported Medications Docusate Sodium* (Docusate Sodium*) 100 Mg Capsule, 100 MG PO DAILY, #30 CAP 03/05/17 Meloxicam* (Meloxicam*) 7.5 Mg Tablet, 7.5 MG PO BID, #30 TAB 03/05/17 Clopidogrel Bisulfate (Clopidogrel) 75 Mg Tablet, 75 MG PO DAILY, #30 TAB 03/05/17 Acetaminophen* (Acetaminophen*) 325 Mg Tablet, 650 MG PO Q6H Y for PAIN AND OR ELEVATED TEMP, #30 TAB 03/05/17 Omeprazole* (Omeprazole*) 20 Mg Capsule.dr, 20 MG PO DAILY, #30 CAP 12/02/16 Lamotrigine* (Lamotrigine*) 100 Mg Tablet, 100 MG PO BID, TAB 12/02/16 Furosemide* (Furosemide*) 20 Mg Tablet, 20 MG PO DAILY, #60 TAB 12/02/16 Atorvastatin Calcium* (Atorvastatin Calcium*) 20 Mg Tablet, 20 MG PO QHS, #30 TAB 12/02/16 Allergies Allergies: Coded Allergies: aspirin (Verified Allergy, Severe, 03/05/17) atenolol (Verified Allergy, Severe, 03/05/17) chlorthalidone (Verified Allergy, Severe, 03/05/17) lisinopril (Verified Allergy, Severe, 03/05/17) losartan (Verified Allergy, Severe, 03/05/17) PMhx/Soc Medical and Surgical Hx: pt denies Surgical Hx History of Surgery: No Anesthesia Reaction: No Hx Neurological Disorder: Yes (CVA ) Hx Respiratory Disorders: No Hx Cardiac Disorders: Yes (CHF) Hx Psychiatric Problems: Yes (auditory hallucinations) Hx Miscellaneous Medical Probl: Yes (Sz) Hx Alcohol Use: No Hx Substance Use: No Hx Tobacco Use: Yes Smoking Status: Light tobacco smoker Physical Exam Vitals Vital Signs Date Time Temp Pulse Resp B/P Pulse Ox O2 Delivery O2 Flow Rate FiO2 03/06/17 03:00 96.8 17 153/85 99 Room Air 03/06/17 01:00 14 171/87 96 Room Air 03/06/17 00:00 16 146/66 94 Room Air 03/05/17 22:05 98.2 03/05/17 22:00 74 19 162/91 92 Room Air 03/05/17 19:03 98.0 75 20 181/92 97 Physical Exam Const: No acute distress. Head: Atraumatic. Eyes: Normal Conjunctiva. ENT: Normal External Ears, Nose and Mouth. Bilateral tympanic membranes are within normal limits, no nystagmus Neck: Full range of motion. No meningismus. Resp: Clear to auscultation bilaterally. Cardio: Regular rate and rhythm. Abd: Soft, obese, normal bowel sounds, diffuse and vague abdominal tenderness, no rigidity, rebound, CVA tenderness Skin: No petechiae or rashes. Back: No midline or flank tenderness. Ext: No cyanosis, or edema. Neur: Awake and alert. No focal deficit Psych: Normal Mood and Affect. Result Diagram: 03/05/17 2215 03/05/17 2215 Results 24 hrs Laboratory Tests Test 03/05/17 22:15 03/06/17 00:30 03/06/17 01:05 White Blood Count 12.810^3/ul Red Blood Count 4.8010^6/ul Hemoglobin 13.9g/dl Hematocrit 42.3% Mean Corpuscular Volume 88.1fl Mean Corpuscular Hemoglobin 29.0pg Mean Corpuscular Hemoglobin Concent 32.9g/dl Red Cell Distribution Width 14.6% Platelet Count 13372^3/UL Mean Platelet Volume 11.7fl Neutrophils % 79.6% Lymphocytes % 12.5% Monocytes % 3.9% Eosinophils % 2.4% Basophils % 0.6% Nucleated Red Blood Cells % 0.0/100WBC Neutrophils # 10.210^3/ul Lymphocytes # 1.610^3/ul Monocytes # 0.510^3/ul Eosinophils # 0.310^3/ul Basophils # 0.110^3/ul Nucleated Red Blood Cells # 0.010^3/ul Sodium Level 140mmol/L Potassium Level 4.1mmol/L Chloride Level 103mmol/L Carbon Dioxide Level 26mmol/L Anion Gap 15 Blood Urea Nitrogen 18mg/dl Creatinine 0.66mg/dl Glucose Level 134mg/dl Calcium Level 9.7mg/dl Total Bilirubin 0.4mg/dl Direct Bilirubin 0.00mg/dl Indirect Bilirubin 0.4mg/dl Aspartate Amino Transf (AST/SGOT) 28IU/L Alanine Aminotransferase (ALT/SGPT) 39IU/L Alkaline Phosphatase 147IU/L Troponin I < 0.012ng/ml Total Protein 7.7g/dl Albumin 4.2g/dl Globulin 3.50g/dl Albumin/Globulin Ratio 1.20 Lipase 65U/L Urine Color YELLOW Urine Clarity SLIGHTLY CLOUDY Urine pH 6.0 Urine Specific Hudson 1.015 Urine Ketones NEGATIVEmg/dL Urine Nitrite NEGATIVEmg/dL Urine Bilirubin NEGATIVEmg/dL Urine Urobilinogen NEGATIVEmg/dL Urine Leukocyte Esterase NEGATIVELeu/ul Urine Microscopic RBC 1/HPF Urine Microscopic WBC 6/HPF Urine Squamous Epithelial Cells FEW/HPF Urine Bacteria FEW/HPF Urine Hemoglobin NEGATIVEmg/dL Urine Glucose NEGATIVEmg/dL Urine Total Protein NEGATIVEmg/dl Bedside Urine pH (LAB) 6.0 Bedside Urine Protein (LAB) 1+ Bedside Urine Glucose (UA) Negative Bedside Urine Ketones (LAB) Negative Bedside Urine Blood Negative Bedside Urine Nitrite (LAB) Negative Bedside Urine Leukocyte Esterase (L Negative Current Medications Medications (Trade) Dose Ordered Sig/Alysha Route PRN Reason Start Time Stop Time Status Last Admin Dose Admin Meclizine HCl (Antivert) 25 mg ONCE ONCE PO 03/06/17 02:00 03/06/17 02:01 DC 03/06/17 02:59 Ondansetron HCl (Zofran Inj) 4 mg ONCE STAT IV 03/06/17 02:10 03/06/17 02:11 DC 03/06/17 02:56 Procedures/[place] [id number] Radiology Main Line: [phone] DIAGNOSTIC IMAGING REPORT Patient: NELI PHAM : 1955 Age: 62 Sex: F MR #: [id number] DOS: 03/05/17 2332 Ordering MD: ANNY GONZALEZ MD Location: E/R Room/Bed: PROCEDURE: CT BRAIN WITHOUT CONTRAST CLINICAL INDICATION: 62-year-old female with headaches and dizziness. TECHNIQUE: The study was performed utilizing [employer] VCT 64-slice CT scanner. Direct axial sections were obtained from the foramen magnum to the vertex without the use of intravenous contrast material. Sagittal and coronal reformations were obtained. One or more the following dose reduction techniques were utilized: automated exposure control, adjustment of the mA and/or kV according to patient's size and/or use of iterative reconstruction technique. DICOM images are available. The images were viewed on a PACS workstation. CTD/ vol = 44.4 mGy; Total Exam DLP = 720.2 mGy-cm. COMPARISON: CT brain December 02, 2016. FINDINGS: There is [id number]-jgdputcb degree of diffuse cortical and central atrophy with compensatory ventricular enlargement. There is no evidence for mass effect or midline shift. There are periventricular areas of decreased density consistent with microangiopathic ischemic changes. There is no evidence for acute intra or extra-axial blood. Calcifications are seen within the intracranial carotid arteries bilaterally. The bony calvarium is intact. There is moderate mucosal thickening within the left sphenoid sinus. The mastoid air cells are without significant soft tissue. IMPRESSION: 1. Tpnv-pa-vhaafkkf diffuse atrophy. 2. Microangiopathic ischemic changes. 3. Vascular calcifications. 4. Moderate left sphenoid sinus disease. .Jason Doty MD, MD Date Time Electronically viewed and signed by .Jason Doty MD, MD on 03/06/2017 01:42 .M/ CC: ANNY GONZALEZ MD [place] [address] Radiology Main Line: [phone] DIAGNOSTIC IMAGING REPORT Patient: NELI PHAM : 1955 Age: 62 Sex: F MR #: [id number] DOS: 03/05/17 2332 Ordering MD: ANNY GONZALEZ MD Location: E/R Room/Bed: PROCEDURE: CT Abdomen and Pelvis without contrast. CLINICAL INDICATION: Abdominal pain and vomiting. TECHNIQUE: A CT scan of the abdomen and pelvis was performed without intravenous contrast. Coronal and sagittal reformatted images were generated. DICOM images are available. Images were reviewed on a high-resolution PACS workstation. CTDIvol: 22.59 mGy. DLP: 1399.02 mGy-cm. One or more of the following dose reduction techniques were used: - Automated exposure control. - Adjustment of the mA and/or kV according to patient size. - Use of iterative reconstruction technique. COMPARISON: None. FINDINGS: There are mild atelectatic changes in both lower lungs. Evaluation of the abdominal and pelvic viscera is limited by the lack of oral and intravenous contrast. There is focal fatty infiltration of the liver adjacent to the gallbladder fossa. The patient is status post cholecystectomy. The common bile duct is not dilated. The spleen is not enlarged. No pancreatic lesion is identified and there is no pancreatic ductal dilatation. The adrenal glands are unremarkable. The kidneys are normal in size. There is no perinephric fat stranding. No hydronephrosis is seen. There is a 3 mm nonobstructing stone in the left kidney. There is a small hiatal hernia. The small and large bowel are normal in caliber. There is no bowel wall thickening. There is mild colonic diverticulosis. The appendix is normal. The urinary bladder is unremarkable. The pelvic organs are within normal limits. No lymphadenopathy is identified. There is no ascites. No pneumoperitoneum is seen. There are moderate to severe arterial calcifications. No suspicious osseous lesion is idenitified. There is a chronic-appearing L4 burst fracture with mild to moderate loss of vertebral body height and 4 mm retropulsion, leading to severe spinal canal stenosis. IMPRESSION: 1. No inflammation, mass, or lymphadenopathy. 2. 3 mm nonobstructing left renal stone. 3. Normal appendix. 4. Status post cholecystectomy. 5. Small hiatal hernia. 6. Mild colonic diverticulosis. 7. Moderate to severe atherosclerotic arterial calcifications. 8. Chronic-appearing L4 burst fracture with mild to moderate loss of vertebral body height and 4 mm retropulsion, leading to severe spinal canal stenosis. RPTAT: HTAR .Mango Cornejo MD, Date Time Electronically viewed and signed by .Mango Cornejo MD, MD on 03/06/2017 01:27 .R/ CC: ANNY GONZALEZ MD EKG: Read by emergency physician Rate/Rhythm: Normal Sinus Rhythm 73 beats/min QRS, ST, T-waves: No ST elevation, no T inversion, LVH Impression: Abnormal EKG MEDICAL MAKING DECISION: The patient is a 71-year-old female, presenting with acute dizziness of unclear etiology, acute abdominal pain of unclear etiology, left nephrolithiasis. She was treated with Zofran IV for nausea and Antivert for dizziness with good response The differential diagnoses for acute dizziness considered include but are not limited to central causes such as cerebellar infarct, cerebellar hemorrhage, cerebellar tumor, acoustic neuroma, peripheral causes such as benign positional vertigo, labyrinthitis, medication, Meniere's disease. The differential diagnoses for acute abdominal pain considered include but are not limited to cystitis, pancreatitis, hepatitis, gastritis, peptic ulcer disease, gastric ulcer, appendicitis, diverticulitis, cholangitis, choledocholithiasis, partial small bowel obstruction. Departure Diagnosis: Primary Impression: Dizziness Additional Impressions: Abdominal pain Left nephrolithiasis Condition: Good Comments She was discharged with Zofran ODT and Antivert I discussed the findings with the patient. I advised the patient to follow-up with the primary physician in about 1-2 days, sooner if needed and return if any concern. Disclaimer: Inadvertent spelling and grammatical errors are likely due to EHR/ dictation software use and do not reflect on the overall quality of patient care. Also, please note that the electronic time recorded on this note does not necessarily reflect the actual time of the patient encounter. ANNY GONZALEZ MD Mar 05, 2017 23:02
[2017-03-05 23:50] LABS: ALANINE AMINOTRANSFERASE 39 IU/L (13-69); ALBUMIN 4.2 g/dl (3.3-4.9); ALKALINE PHOSPHATASE 147 IU/L (42-121); ANION GAP 15 (8-16); ASPARTATE AMINO TRANSFERASE 28 IU/L (15-46); BILIRUBIN,INDIRECT 0.4 mg/dl (0-1.1); BILIRUBIN,TOTAL 0.4 mg/dl (0.2-1.3); BLOOD UREA NITROGEN 18 mg/dl (7-20); CALCIUM 9.7 mg/dl (8.4-10.2); CARBON DIOXIDE 26 mmol/L (21-31); CHLORIDE 103 mmol/L (97-110); CREATININE 0.66 mg/dl (0.44-1.00); GLUCOSE 134 mg/dl (70-220); POTASSIUM 4.1 mmol/L (3.5-5.1); SODIUM 140 mmol/L (135-144); TOTAL PROTEIN 7.7 g/dl (6.1-8.1)
[2017-03-06 00:07] LABS: TROPONIN-I < 0.012 ng/ml (0.00-0.12)
[2017-03-06 01:06] LABS: URINE BLOOD (Dip) POC Negative (NEGATIVE)
--- NOTE | 2017-03-06 01:27 | RADRPT ---
PROCEDURE: CT Abdomen and Pelvis without contrast. CLINICAL INDICATION: Abdominal pain and vomiting. TECHNIQUE: A CT scan of the abdomen and pelvis was performed without intravenous contrast. Avila l and sagittal reformatted images were generated. DICOM images are available. Images were reviewed o n a high-resolution PACS workstation. CTDIvol: 22.59 mGy. DLP: 1399.02 mGy-cm. One or more of the following dose reduction techniques were used: - Automated exposure control. - Adjustment of the mA and/or kV according to patient size. - Use of iterative reconstruction technique. COMPARISON: None. FINDINGS: There are mild atelectatic changes in both lower lungs. Evaluation of the abdominal and pelvic viscera is limited by the lack of oral and intravenous contra st. There is focal fatty infiltration of the liver adjacent to the gallbladder fossa. The patient is sta tus post cholecystectomy. The common bile duct is not dilated. The spleen is not enlarged. No pancr eatic lesion is identified and there is no pancreatic ductal dilatation. The adrenal glands are unre markable. The kidneys are normal in size. There is no perinephric fat stranding. No hydronephrosis is seen. Th ere is a 3 mm nonobstructing stone in the left kidney. There is a small hiatal hernia. The small and large bowel are normal in caliber. There is no bowel w all thickening. There is mild colonic diverticulosis. The appendix is normal. The urinary bladder is unremarkable. The pelvic organs are within normal limits. No lymphadenopathy is identified. There is no ascites. No pneumoperitoneum is seen. There are modera te to severe arterial calcifications. No suspicious osseous lesion is idenitified. There is a chronic-appearing L4 burst fracture with mil d to moderate loss of vertebral body height and 4 mm retropulsion, leading to severe spinal canal st enosis. IMPRESSION: 1. No inflammation, mass, or lymphadenopathy. 2. 3 mm nonobstructing left renal stone. 3. Normal appendix. 4. Status post cholecystectomy. 5. Small hiatal hernia. 6. Mild colonic diverticulosis. 7. Moderate to severe atherosclerotic arterial calcifications. 8. Chronic-appearing L4 burst fracture with mild to moderate loss of vertebral body height and 4 mm retropulsion, leading to severe spinal canal stenosis. RPTAT: HTAR .Mango Cornejo MD, MD Date Time Electronically viewed and signed by .Mango Cornejo MD, MD on 03/06/2017 01:27 .R/
--- NOTE | 2017-03-06 01:42 | RADRPT ---
PROCEDURE: CT BRAIN WITHOUT CONTRAST CLINICAL INDICATION: 62-year-old female with headaches and dizziness. TECHNIQUE: The study was performed utilizing [employer] VCT 64-slice CT scanner. Direct axial sections were obtained from the foramen magnum to the vertex without the use of intravenous contrast material. Sagittal and coronal reformations were obtained. One or more the following dose reduction techniques were utilized: automated exposure control, adjustment of the mA and/or kV according to p atient's size and/or use of iterative reconstruction technique. DICOM images are available. The imag es were viewed on a PACS workstation. CTD/vol = 44.4 mGy; Total Exam DLP = 720.2 mGy-cm. COMPARISON: CT brain December 02, 2016. FINDINGS: There is mgfh-am-banyiwdl degree of diffuse cortical and central atrophy with compensatory ventricul ar enlargement. There is no evidence for mass effect or midline shift. There are periventricular a reas of decreased density consistent with microangiopathic ischemic changes. There is no evidence f or acute intra or extra-axial blood. Calcifications are seen within the intracranial carotid arterie s bilaterally. The bony calvarium is intact. There is moderate mucosal thickening within the left sp henoid sinus. The mastoid air cells are without significant soft tissue. IMPRESSION: 1. Zwsu-af-ilnzuvab diffuse atrophy. 2. Microangiopathic ischemic changes. 3. Vascular calcifications. 4. Moderate left sphenoid sinus disease. .Jason Doty MD, MD Date Time Electronically viewed and signed by .Jason Doty MD, on 03/06/2017 01:42 .M/
[2017-03-06] MEDS ORDERED: MECLIZINE 12.5 MG TAB PO ONE (02:00)
[2017-03-06 02:04] LABS: ADD UMIC NO; UR ASCORBIC ACID NEGATIVE (NEGATIVE); UR BACTERIA FEW /HPF (NONE SEEN); UR BILIRUBIN (Dip) NEGATIVE (NEGATIVE); UR BLOOD (Dip) NEGATIVE (NEGATIVE); UR CLARITY SLIGHTLY CLOUDY (CLEAR); UR COLOR YELLOW (YELLOW); UR GLUCOSE (Dip) NEGATIVE (NEGATIVE); UR KETONES (Dip) NEGATIVE (NEGATIVE); UR LEUKOCYTE ESTERASE (Dip) NEGATIVE Leu/ul (NEGATIVE); UR NITRITE (Dip) NEGATIVE (NEGATIVE); UR RBC 1 /HPF (0-5); UR SPECIFIC GRAVITY (Dip) 1.015 (1.003-1.030); UR SQUAMOUS EPITHELIAL CELL FEW /HPF (FEW); UR TOTAL PROTEIN (Dip) NEGATIVE (NEGATIVE); UR UROBILINOGEN (Dip) NEGATIVE (NEGATIVE)
[2017-03-06] MEDS ORDERED: ONDA4TAB8 PO (02:09)
[2017-03-06] MEDS ORDERED: MECL-77 PO (02:09)
[2017-03-06] MEDS ORDERED: ONDANSETRON 4 MG INJ IV STA (02:10)
[2017-03-06 03:00] VITALS: BP 153/85; RESP 17; TEMP 96.8
== END 2017-03-06 03:31 | disposition home or self-care (01) ==
LOC: E/R 18:38
DX: N20.0 Calculus of kidney (principal); I50.9 Heart failure, unspecified; I10 Essential (primary) hypertension; F17.210 Nicotine dependence, cigarettes, uncomplicated; Z79.01 Long term (current) use of anticoagulants; Z98.61 Coronary angioplasty status
CPT/HCPCS: 36415; 70450; 74176; 80053; 81001; 83690; 84484; 85025; 93005; 96374; J2405; Z7502; Z7610; 81003

== ENCOUNTER 2017-04-04 05:04 | Emergency (ER) | END 2017-04-04 09:50 | disposition home or self-care (01) ==